=== PATIENT | male | born 1940 | race African-American/Black ===

== ENCOUNTER 2025-03-02 14:31 | Emergency (ER) | payer OTHER, SELFPAY ==
--- OUTSIDE RECORDS SUMMARY | 2025-03-01 08:15 | XMS_ITS | Encounter Summary ---
Author Organization [facility] Healthcare Address [address] [place] [address] Care Team Providers Care Limousine Rental Clerk Name Role Phone Robert Weeks DO Primary Care Provider Reason for Referral * Cardiology (Routine) - Closed Specialty Diagnoses / Procedures Referred By Contac t Referred To Contact Diagnoses Portopulmonary hypertension (HCC) Procedures Transthoracic Echo (TTE) With Bubble Study Kayleigh Vu MD [address] [address] Phone: tel: fax: [address] [phone] Referral ID Status Reason Start Date Expiration Date Visits Re quested Visits Authorized [id number] Closed 03/01/2025 05/30/2025 1 1 Reason for Visit * Cardiology (Routine) - Closed Specialty Diagnoses / Procedures Referred By Contac t Referred To Contact Diagnoses Portopulmonary hypertension (HCC) Procedures Transthoracic Echo (TTE) With Bubble Study Kayleigh Vu MD [address] [address] Phone: tel: fax: [address] [phone] Referral ID Status Reason Start Date Expiration Date Visits Re quested Visits Authorized [id number] Closed 03/01/2025 05/30/2025 1 1 Encounter Details Date Type Department Care Team (Latest Contact Info) Description 03/01/2025 8:15 AM CDT - 03/01/2025 11:59 PM CDT Hospital Encounter [facility] Cardiac Diagnostic Lab [address] [facility] [address] [place] [address] Portopulmonary hypertension (HCC) Discharge Disposition: Discharge to home or self care Social History Tobacco Use Types Packs/Day Years Used Date Smoking Tobacco: Former Cigarettes Smokeless Tobacco: Never Sex and Gender Information Value Date Recorded Sex Assigned at Not on file Legal Sex Male 11:25 AM CDT Gender Identity Not on file Sexual Orientation Not on file documented as of this encounter Medications at Time of Discharge acetaminophen (TYLENOL) 325 mg tablet Take 2 tablets (650 mg total) by mouth every 4 (four) hours as needed 08/24/2024 albuterol HFA (PROVENTIL HFA,VENTOLIN HFA,PROAIR HFA) 90 mcg/actuation inhaler Inhale 2 puffs every 4 (four) hours as needed 09/30/2024 atorvastatin (LIPITOR) 20 mg tablet Take 1 tablet (20 mg total) by mouth nightly Breztri Aerosphere 160-9-4.8 mcg/actuation inhaler INHALE 2 PUFFS INTO THE LUNGS TWICE DAILY 11/10/2024 Eliquis 5 mg tablet Take 1 tablet (5 mg total) by mouth 2 (two) times a day 09/07/2024 6 Farxiga 10 mg tablet Take 1 tablet (10 mg total) by mouth daily 02/01/2025 6 finasteride (PROSCAR) 5 mg tablet Take 1 tablet (5 mg total) by mouth daily metoprolol XL (TOPROL-XL) 25 mg extended release tablet Take 3 tablets (75 mg total) by mouth 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 09/07/2024 multivit-mineral s/folic acid (CENTRUM ADULT 50 PLUS ORAL) Take by mouth pantoprazole DR (PROTONIX) 40 mg EC tablet Take 1 tablet (40 mg total) by mouth daily sennosides 8.6 mg capsule Take 1 tablet by mouth daily 12/09/2024 documented as of this encounter Discharge Disposition Disposition Code Departure Means Destination Discharge to home or self care documented in this encounter Plan of Treatment Not on file documented as of this encounter Procedures Procedure Name Priority Date/Time Associated Diagnosis Comments TRANSTHORACIC ECHO (TTE) COMPLETE W DOPPLER/CF W CONTRAST W BUBBLE Routine 03/01/2025 9:49 AM CDT Portopulmonary hypertension (HCC) documented in this encounter Results * TRANSTHORACIC ECHO (TTE) COMPLETE W DOPPLER/CF W CONTRAST W BUBBLE (03/01/2025 9:49 AM CDT) Anatomical Region Laterality Modality Ultrasound 03/01/2025 8:45 AM CDT Narrative 03/01/2025 10:15 AM CDT [facility] Cardiac [place] [address] Transthoracic Echocardiographic Report Patient Name: ZEB ANTONY K : 1940 (84y 2m) Gender: M Study Date: 03/01/2025 08:45:58 AM Ht(Inch): 71 Wt(Lb): 195.99 BSA: 2.11 Resident Program Specialist: Tatyana Mcintyre RDCS Location: [facility] Order Provider: KAYLEIGH VU Heart Rate: 58 BMI: 27.33 BP: 152 / 66 Ref Provider: KAYLEIGH VU PROCEDURES: Echocardiographic Report: Transthoracic complete echo with strain imaging and contrast, 2D, spectral and tissue Doppler, color flow Doppler, M-mode. Contrast: Contrast Enhancement was Employed: Due to suboptimal image quality with inadequate visualization of at least 2 of 16 LV wall segments in any view after initial imaging. Perflutren contrast was administered using the volume necessary to obtain adequate images. 0.4 ml Optison Administered, (2.6 ml wasted). Technically difficult study due to: Poor acoustic windows. Limited visualization of some cardiac structures precludes the ability to obtain complete measurements - INDICATIONS: PortoPulmonary hypertension. CONCLUSIONS: 1. Concentric LV remodeling. Normal diastolic function. The ventricular septum is flattened or `D-shaped` in systole, consistent with right ventricular pressure overload. 2. Right ventricular dilatation. Normal right ventricular systolic function. The average right ventricular strain is abnormal. 3. Right atrial dilatation. 4. Agitated saline bubble study is negative for intracardiac shunt at rest and post-Valsalva. 5. There is no significant valvular heart disease. 6. Estimated pulmonary artery systolic pressure is consistent with mild-moderate pulmonary hypertension (~50 mmHg). PASP may be underestimated due to very faint TR jet. Mean PAP ~30 mmHg by PVAT. COMPARISONS: No previous study available for comparison. ATTESTATION: I have personally reviewed and interpreted this study without fellow or resident. - DISCLAIMER: The study images and the final report will be retained in the patient chart by the Echo Laboratory for the legally required time period. This chart constitutes the legal record of any testing performed. FINDINGS: Left Ventricle: Concentric LV remodeling. Normal diastolic function. Unable to assess global longitudinal strain due to image quality. The ventricular septum is flattened or `D-shaped` in systole, consistent with right ventricular pressure overload. Right Ventricle: Right ventricular dilatation. Normal right ventricular systolic function. Prominent moderator band - normal variant. The average right ventricular strain is abnormal. RV GLS -16.9%. Left Atrium: The left atrium is normal in size. Right Atrium: Right atrial dilatation. Atrial Septum: Agitated saline bubble study is negative for intracardiac shunt at rest and post-Valsalva. Mitral Valve: Mild calcification. No mitral regurgitation. No stenosis present. Aortic Valve: Trileaflet aortic valve. Mildly calcified aortic valve leaflets. No aortic regurgitation. No aortic valve stenosis. Tricuspid Valve: Normal tricuspid valve structure. Trace tricuspid regurgitation. No tricuspid valve stenosis. Pulmonic Valve: Normal pulmonic valve structure. No pulmonic regurgitation. No pulmonic valve stenosis present. Pericardium: Normal pericardium without pericardial effusion. Aorta: Normal aortic root size at sinuses of Valsalva. Normal aortic root size when indexed. IVC: The IVC was <2.1 cm and collapsibility >50%. (est. RA pressure 0-5 mmHg). The estimated RA pressure is 3 mmHg. PASP: The estimated pulmonary artery systolic pressure is 50.5 mmHg. Estimated pulmonary artery systolic pressure is consistent with mild-moderate pulmonary hypertension (~50 mmHg). PASP may be underestimated due to very faint TR jet. Mean PAP ~30 mmHg by PVAT. Rhythm: Normal Sinus rhythm was seen during the study. MEASUREMENTS: 2D/MM Value Range Doppler Value Range LVIDd 2D 4.18 cm [ 4.20 - 5.80 ] AV VTI 24.4 cm LVIDs 2D 2.13 cm [ 2.50 - 4.00 ] LVOT VTI 13.7 cm IVSd 2D 1.02 cm [ 0.60 - 1.00 ] LVOT/AV VTI 0.56 - Dimensionless index (DVI) LVPWd 2D 0.96 cm [ 0.60 - 1.00 ] MV E Peak Oscar 0.5 m/s [ 0.6 - 1.3 ] LV Thickness Ratio 1.1 MV A Peak Oscar 0.7 m/s [ 1.0 - 1.2 ] RWT 0.46 MV E/A 0.7 ratio [ 0.8 - 1.5 ] LA Length 4C 5.29 cm MV Decel Time 293.09 msec [ 104.00 - 258.00 ] RV Base Dimen 2D 5.0 cm [ 2.5 - 4.2 ] Med E` Oscar 5.7 cm/sec [ 8.0 - 25.0 ] RV Mid Dimen 2D 4.6 cm Lat E` Oscar 6.1 cm/sec [ 10.0 - 25.0 ] RV Length Dimen 2D 7.7 cm Average E/E` 8.47 TAPSE 2.52 cm [ 1.71 - 5.00 ] RV S` 19.03 cm/sec RA Volume 78.86 ml TR Peak Oscar 3.4 m/s [ 1.0 - 2.8 ] RA Volume Index 37.37 ml/m2 TR Peak PG 47.5 mmHg AoR Diam 2D 3.58 cm [ 3.10 - 3.70 ] RA Pressure 3 mmHg Ao Root Index 1.70 cm/m2 [ 1.00 - 2.00 ] RVSP 50.50 mmHg Electronically Signed By: Neva Ferris MD 03/01/2025 10:14:57 AM CDT Procedure Note De Neva Brunner MD - 03/01/2025 [facility] Cardiac [place] [address] Transthoracic Echocardiographic Report Patient Name: ZEB ANTONY K : 1940 (84y 2m) Gender: M Study Date: 03/01/2025 08:45:58 AM Ht(Inch): 71 Wt(Lb): 195.99 BSA: 2.11 Resident Program Specialist: Tatyana Mcintyre RDCS Location: [facility] Order Provider:KAYLEIGH VU Heart Rate: 58 BMI: 27.33 BP: 152 / 66 Ref Provider: KAYLEIGH VU PROCEDURES: Echocardiographic Report: Transthoracic complete echo with strain imagingand contrast, 2D, spectral and tissue Doppler, color flow Doppler, M-mode. Contrast: Contrast Enhancement was Employed: Due to suboptimal imagequality with inadequate visualization of at least 2 of 16 LV wall segments in any viewafter initial imaging. Perflutren contrast was administered using the volume necessaryto obtain adequate images. 0.4 ml Optison Administered, (2.6 ml wasted). Technically difficult study due to: Poor acoustic windows. Limitedvisualization of some cardiac structures precludes the ability to obtain complete measurements - INDICATIONS: PortoPulmonary hypertension. CONCLUSIONS: 1. Concentric LV remodeling. Normal diastolic function. The ventricularseptum is flattened or `D-shaped` in systole, consistent with right ventricularpressure overload. 2. Right ventricular dilatation. Normal right ventricular systolicfunction. The average right ventricular strain is abnormal. 3. Right atrial dilatation. 4. Agitated saline bubble study is negative for intracardiac shunt at restand post-Valsalva. 5. There is no significant valvular heart disease. 6. Estimated pulmonary artery systolic pressure is consistent withmild-moderate pulmonary hypertension (~50 mmHg). PASP may be underestimated due to veryfaint TR jet. Mean PAP ~30 mmHg by PVAT. COMPARISONS: No previous study available for comparison. ATTESTATION: I have personally reviewed and interpreted this study without fellow orresident. - DISCLAIMER: The study images and the final report will be retained in the patientchart by the Echo Laboratory for the legally required time period. This chart constitutesthe legal record of any testing performed. FINDINGS: Left Ventricle: Concentric LV remodeling. Normal diastolic function.Unable to assess global longitudinal strain due to image quality. The ventricular septum isflattened or `D-shaped` in systole, consistent with right ventricular pressureoverload. Right Ventricle: Right ventricular dilatation. Normal right ventricularsystolic function. Prominent moderator band - normal variant. The average rightventricular strain is abnormal. RV GLS -16.9%. Left Atrium: The left atrium is normal in size. Right Atrium: Right atrial dilatation. Atrial Septum: Agitated saline bubble study is negative for intracardiacshunt at rest and post-Valsalva. Mitral Valve: Mild calcification. No mitral regurgitation. No stenosispresent. Aortic Valve: Trileaflet aortic valve. Mildly calcified aortic valveleaflets. No aortic regurgitation. No aortic valve stenosis. Tricuspid Valve: Normal tricuspid valve structure. Trace tricuspidregurgitation. No tricuspid valve stenosis. Pulmonic Valve: Normal pulmonic valve structure. No pulmonicregurgitation. No pulmonic valve stenosis present. Pericardium: Normal pericardium without pericardial effusion. Aorta: Normal aortic root size at sinuses of Valsalva. Normal aortic rootsize when indexed. IVC: The IVC was <2.1 cm and collapsibility >50%. (est. RA pressure 0-5mmHg). The estimated RA pressure is 3 mmHg. PASP: The estimated pulmonary artery systolic pressure is 50.5 mmHg.Estimated pulmonary artery systolic pressure is consistent with mild-moderate pulmonaryhypertension (~50 mmHg). PASP may be underestimated due to very faint TR jet. Mean PAP ~30mmHg by PVAT. Rhythm: Normal Sinus rhythm was seen during the study. MEASUREMENTS: 2D/MM Value Range DopplerValue Range LVIDd 2D 4.18 cm [ 4.20 - 5.80 ] AV VTI24.4 cm LVIDs 2D 2.13 cm [ 2.50 - 4.00 ] LVOT VTI13.7 cm IVSd 2D 1.02 cm [ 0.60 - 1.00 ] LVOT/AV VTI0.56 - Dimensionless index (DVI) LVPWd 2D 0.96 cm [ 0.60 - 1.00 ] MV E Peak Vel0.5 m/s [ 0.6 - 1.3 ] LV Thickness Ratio 1.1 MV A Peak Vel0.7 m/s [ 1.0 - 1.2 ] RWT 0.46 MV E/A0.7 ratio [ 0.8 - 1.5 ] LA Length 4C 5.29 cm MV Decel Poyz604.09 msec [ 104.00 - 258.00 ] RV Base Dimen 2D 5.0 cm [ 2.5 - 4.2 ] Med E` Vel5.7 cm/sec [ 8.0 - 25.0 ] RV Mid Dimen 2D 4.6 cm Lat E` Vel6.1 cm/sec [ 10.0 - 25.0 ] RV Length Dimen 2D 7.7 cm Average E/E`8.47 TAPSE 2.52 cm [ 1.71 - 5.00 ] RV S`19.03 cm/sec RA Volume 78.86 ml TR Peak Vel3.4 m/s [ 1.0 - 2.8 ] RA Volume Index 37.37 ml/m2 TR Peak PG47.5 mmHg AoR Diam 2D 3.58 cm [ 3.10 - 3.70 ] RA Pressure 3mmHg Ao Root Index 1.70 cm/m2 [ 1.00 - 2.00 ] RVSP50.50 mmHg Electronically Signed By: Neva Ferris MD 03/01/2025 10:14:57 AM CDT us Kayleigh Vu MD CV ECHO PROCEDURES Final Result documented in this encounter Visit Diagnoses Diagnosis Portopulmonary hypertension (HCC) Portal hypertension documented in this encounter Administered Medications Inactive Administered Medications - up to 3 most recent administrations Medication Order MAR Action Action Date Dose Rate Site perflutren protein-a (OPTISON) 3 mL in sodium chloride 0.9% 8 mL syringe 1-8 mL, intravenous, Once in imaging, contrast, Starting on Fri03/01/25 at 0839, For 1 dose, Intra-Procedure (CV) Contrast Given 03/01/2025 9:39 AM CDT 1 mL documented in this encounter Orders Medications Ordered That Ra ht Not Have Been Administered Count Last Ordered Date First Ordered Date perflutren protein-a (OPTISO N) 3 mL in sodium chloride 0.9% 8 mL syringe 1 03/01/2025 documented in this encounter Care Teams Limousine Rental Clerk Relationship Specialty Start Date End Date Robert Weeks DO [address] [facility] [address] [place] [id number] PCP - General Internal Medicine 12/07/24 documented as of this encounter
--- OUTSIDE RECORDS SUMMARY | 2025-03-01 09:30 | XMS_ITS | Encounter Summary ---
Author Organization [facility] Address [address] [place] [address] Phone Care Team Providers Care Sports Physical Therapist Name Role Phone Robert Weeks DO Primary Care Provider Reason for Referral * Procedure (Routine) - Closed Specialty Diagnoses / Procedures Referred By Hilda t Referred To Contact Diagnoses Portopulmonary hypertension (HCC) Procedures Pulmonary Function Test -[facility] Adult PFT Lab- CAM-8D; Oxygen Assessment Titration, Lung Volumes, Spirometry, Spirometry with Bronchodilator, DLCO, ABG with Co-oximetry; Spirometry; Room Air; Plethysmography w/airway resistance, nitrogen washout Brad Restrepo MD [address] [place] [address] Phone: tel: fax: Referral ID Status Reason Start Date Expiration Date Visits Re quested Visits Authorized [id number] Closed 01/06/2025 02/05/2026 1 1 Reason for Visit * Procedure (Routine) - Closed Specialty Diagnoses / Procedures Referred By Contac t Referred To Contact Diagnoses Portopulmonary hypertension (HCC) Procedures Pulmonary Function Test -[facility] Adult PFT Lab- CAM-8D; Oxygen Assessment Titration, Lung Volumes, Spirometry, Spirometry with Bronchodilator, DLCO, ABG with Co-oximetry; Spirometry; Room Air; Plethysmography w/airway resistance, nitrogen washout Brad Restrepo MD [address] [place] [address] Phone: tel: fax: Referral ID Status Reason Start Date Expiration Date Visits Re quested Visits Authorized [id number] Closed 01/06/2025 02/05/2026 1 1 Encounter Details Date Type Department Care Team (Latest Contact Info) Description 03/01/2025 9:30 AM CDT - 03/01/2025 11:59 PM CDT Hospital Encounter 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 09/07/2024 multivit-mineral s/folic acid (CENTRUM [...] Procedure Name Priority Date/Time Associated Diagnosis Comments PULMONARY FUNCTION TEST (PFT) Routine 03/01/2025 11:08 AM CDT Portopulmonary hypertension (HCC) documented in this encounter Results * Pulmonary Function Test - (03/01/2025 11:08 AM CDT) FVC PRE 2.30 L [facility] FVC %PRE PRED 61 % [facility] FVC POST 2.90 L [facility] FVC %POST PRED 77 % [facility] FEV1 PRE 0.76 L [facility] FEV1 %PRE PRED 27 % [facility] FEV1 POST 0.97 L [facility] FEV1 %POST PRED 35 % [facility] FEV1/FVC PRE 33.0 % [facility] FEV1/FVC POST 33.5 % [facility] FRC PL PRE 5.12 L [facility] FRC PL %PRE PRED 130 % [facility] RV PRE 4.07 L [facility] RV %PRE PRED 145 % [facility] TLC PRE 6.47 L [facility] TLC %PRE PRED 90 % [facility] DLCO PRE 9.2 ml/min/mmH g [facility] DLCO %PRE PRED 38 % [facility] FIO2 % 21.00 % [facility] PaO2 58.0 mmHg [facility] PaCO2 43.0 mmHg [facility] pH 7.43 [facility] A-aDO2 POC 38.0 mmHg [facility] METHGB % 0.4 % [facility] COHb POC 1.2 % [facility] HCO3 28.5 mEq/L [facility] Anatomical Region Laterality Modality PFT 03/01/2025 9:45 AM CDT Narrative 03/01/2025 4:01 PM CDT Table formatting from the original result was not included. [facility] Division of Pulmonary & Critical Care Medicine [address] [place] [address]; [place] [address]; [place] [id number]; [phone] Pulmonary Function Laboratory Pulmonary Stress Test Simple/Oxygen Assessment Patient: Zeb Julian Date: 03/01/2025 : 1940 Ht: 70.5 IN Wt: 176 LBS Time (min) Distance (ft)/ Mcdonough O2 L/M SpO2 HR Farzad* BP FEV1 % Pred Rest: RA 94 73 1 130/84 0.76 27 % Walk/Bike: 1 RA 92 85 2 2 RA/2 88/93 98/83 2 3 2 93 103 3 4 2 92 105 3 5 2 93 106 3 6 min 0 sec 2 93 106 3 Recovery: 1 2 97 84 1 161/96 0.86 31% 3 2 99 71 0 *Farzad rate of perceived exertion (1-10 dyspnea scale) Eric, CHEST 2003; [id number] Walk Test Summary: Six Minute Walk Distance: 525 ft Six-minute Walk Work [distance (m) x body wt (kg)]: 93932 kg.m (normal >60,000kg.m) Oxygen required to maintain SpO2 greater than 90% during six minutes of walkin L/M Comments: O2A- ROLLATOR USED. Interpretation: Breathing room air, SpO2 is adequate at rest and during exercise sufficient to increase pulse, SpO2 falls to hypoxemic levels. On this basis, SpO2 is adequate at rest breathing room air and while walking breathing supplemental O2 at 2 L/min. This level of exercise is associated with no significant change of FEV1. By signing this report, the attending pulmonary physician certifies that he/she has personally reviewed and interpreted the graphic and numerical data associated with this pulmonary function study and has reviewed and /or edited a preliminary draft report and agrees with the written final report. PFT performed at:->[facility] Adult PFT Lab- CAM-8D Procedure:->Oxygen Assessment Titration Procedure:->Lung Volumes Procedure:->Spirometry Procedure:->Spirometry with Bronchodilator Procedure:->DLCO Procedure:->ABG with Co-oximetry DLCO:->Spirometry Air Type:->Room Air Standard:->Plethysmography w/airway resistance, nitrogen washout Pulmonary Function Test Interpretation SPIROMETRY: There is a decrease in expiratory airflow at all lung volumes. The FEV1 to FVC ratio is reduced. There is no significant improvement after inhaling a single dose of albuterol. The lack of response to a single inhaled beta-agonist treatment does not necessarily indicate irreversible airway obstruction. The inspiratory loop is appropriate for the expiratory flow abnormality. LUNG VOLUMES: TLC measured by plethysmography is normal. The increased RV suggests air trapping. DLCO: DLCO testing did not meet standards of accuracy and reproducibility. The diffusing capacity corrected for hemoglobin level (DLCO ADJ) is decreased. ARTERIAL BLOOD GAS: The pH and pCO2 are normal. The arterial pO2 is below the lower limit of normal for the patient's age at rest. O2 saturation measured by oximetry is adequate at rest. 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 There is air trapping. There is a moderate impairment of alveolar gas exchange by DLCO. There is a moderate impairment of gas exchange at rest by ABG. The attending pulmonary physician certifies a physician presence in the [facility] during the administration of aerosolized bronchodilator. The attending pulmonary physician certifies that he/she has reviewed and interpreted the graphic and numerical data of this pulmonary function study and agrees with the written final report. The lower limit of normal for PaO2 and %HbO2 is age dependent. However, the [facility] Pulmonary Function Laboratory defines hypoxemia as a PaO2 <56 mm Hg or a %HbO2 <89%. Starting on June of 2024 the [facility] Pulmonary Function Laboratory utilizes race neutral GLI Global normative equations. us Brad Restrepo MD PFT ORDERABLES Final Res ult documented in this encounter Visit Diagnoses Diagnosis Portopulmonary hypertension (HCC) Portal hypertension documented in this encounter Care Teams Sports Physical Therapist Relationship Specialty Start Date End Date Robert Weeks DO [facility] [address] [place] [id number] PCP - General Internal Medicine 12/07/24 documented as of this encounter
--- OUTSIDE RECORDS SUMMARY | 2025-03-01 11:19 | XMS_ITS | Encounter Summary ---
Author Organization [facility] Healthcare Address [address] [place] [address] Care Team Providers Care Data Center Architect Name Role Phone Robert Weeks DO Primary Care Provider Reason for Referral * MRI/CAT/PET Scan (Routine) - Closed Specialty Diagnoses / Procedures Referred By Contac t Referred To Contact Radiology Diagnoses Portopulmonary hypertension (HCC) Procedures CT Chest PE (CTA) and Chest High Resolution W Contrast Brad Restrepo MD [address] [place] [address] Phone: tel: fax: [address] [phone] Referral ID Status Reason Start Date Expiration Date Visits Re quested Visits Authorized [id number] Closed 02/15/2025 08/14/2025 1 1 Reason for Visit * MRI/CAT/PET Scan (Routine) - Closed Specialty Diagnoses / Procedures Referred By Contac t Referred To Contact Radiology Diagnoses Portopulmonary hypertension (HCC) Procedures CT Chest PE (CTA) and Chest High Resolution W Contrast Brad Restrepo MD [address] [place] [address] Phone: tel: fax: [address] [phone] Referral ID Status Reason Start Date Expiration Date Visits Re quested Visits Authorized [id number] Closed 02/15/2025 08/14/2025 1 1 Encounter Details Date Type Department Care Team (Latest Contact Info) Description 03/01/2025 11:19 AM CDT - 03/01/2025 11:59 PM CDT Hospital Encounter [facility]) [address] [place] [address] Portopulmonary hypertension (HCC) Discharge Disposition: Discharge to [...] tablet (20 mg total) by mouth nightly Lennieztri Aerosphere 160-9-4.8 mcg/actuation inhaler INHALE 2 PUFFS [...] 3 tablets (75 mg total) by mouth customer support professional before breakfast 09/07/2024 multivit-mineral s/folic acid (CENTRUM [...] Procedure Name Priority Date/Time Associated Diagnosis Comments CT CHEST PE AND CHEST HIGH RESOLUTION W CONTRAST Schedule Routine, Read Routine (OP Routine) 03/01/2025 12:22 PM CDT Portopulmonary hypertension (HCC) POCT CREATININE - DEVICE Routine 03/01/2025 11:57 AM CDT documented in this encounter Results * CT Chest PE (CTA) and Chest High Resolution W Contrast (03/01/2025 12:22 PM CDT) Anatomical Region Laterality Modality Body N/A Computed Tomogra phy 03/01/2025 1:59 PM CDT Impressions 03/01/2025 2:48 PM CDT 1. No pulmonary embolism. 2. Right ventricular enlargement septal flattening with slow transit contrast can be seen in the setting of pulmonary hypertension. 3. Patent foramen ovale secondary to pulmonary hypertension. 4. 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 5. 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 6. Bronchiectasis at the lower lobes with fibrosis and volume loss in keeping with chronic aspiration. Dictated by: Philippe Gee MD The radiology attending physician has personally reviewed this study, and had reviewed and/or edited this written report and agrees with it. Electronically signed by: Walter Alarcon M.D. Narrative 03/01/2025 2:48 PM CDT EXAMINATION: CT CHEST PE (CTA) AND CHEST HIGH RESOLUTION W CONTRAST HISTORY: Pulmonary hypertension TECHNIQUE: Computed tomographic images were acquired using a chest angiographic protocol optimized for pulmonary embolism. Contrast enhanced transaxial images were obtained following the intravenous administration of 100 ml of nonionic contrast. Multiplanar reformatted images and three-dimensional images were obtained on the 3-D workstation and sent to the PACS archival system. COMPARISON: None FINDINGS: Imaged portion of the thyroid is within normal limits. Esophagus is patulous. No supraclavicular, axillary, or mediastinal lymphadenopathy. There is right ventricular enlargement and septal flattening with relatively slow transit contrast which can be seen in the setting of pulmonary hypertension. There is a patent foraminal ovale which is likely secondary to pulmonary hypertension. Trace pericardial fluid present. There is no pulmonary embolism. There is bronchiectasis at the lower lobes posteriorly with fibrosis and volume loss in keeping with chronic aspiration. There is air trapping without fibrosis in the right middle lobe and left upper lobe. This may be the sequela of small airways disease. An expiratory images there is bronchomalacia at the right upper lobe bronchus. Imaged portion of the abdomen shows atherosclerotic disease of the abdominal aorta and superior mesenteric artery. Procedure Note Walter Alarcon MD - 03/01/2025 EXAMINATION: CT CHEST PE (CTA) AND CHEST HIGH RESOLUTION W CONTRAST HISTORY: Pulmonary hypertension TECHNIQUE: Computed tomographic images were acquired using a chest angiographic protocol optimized for pulmonary embolism. Contrast enhanced transaxial images were obtained following the intravenous administration of 100 ml of nonionic contrast. Multiplanar reformatted images and three-dimensional images were obtained on the 3-D workstation and sent to the PACS archival system. COMPARISON: None FINDINGS: Imaged portion of the thyroid is within normal limits. Esophagus is patulous. No supraclavicular, axillary, or mediastinal lymphadenopathy. There is right ventricular enlargement and septal flattening with relatively slow transit contrast which can be seen in the setting of pulmonary hypertension. There is a patent foraminal ovale which is likely secondary to pulmonary hypertension. Trace pericardial fluid present. There is no pulmonary embolism. There is bronchiectasis at the lower lobes posteriorly with fibrosis and volume loss in keeping with chronic aspiration. There is air trapping without fibrosis in the right middle lobe and left upper lobe. This may be the sequela of small airways disease. An expiratory images there is bronchomalacia at the right upper lobe bronchus. Imaged portion of the abdomen shows atherosclerotic disease of the abdominal aorta and superior mesenteric artery. IMPRESSION: 1. No pulmonary embolism. 2. Right ventricular enlargement septal flattening with slow transit contrast can be seen in the setting of pulmonary hypertension. 3. Patent foramen ovale secondary to pulmonary hypertension. 4. 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 5. 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 6. Bronchiectasis at the lower lobes with fibrosis and volume loss in keeping with chronic aspiration. Dictated by: Philippe Gee MD The radiology attending physician has personally reviewed this study, and had reviewed and/or edited this written report and agrees with it. Electronically signed by: Walter Alarcon M.D. Brad Restrepo MD IMG CT PROCEDURES Final R esult * (ABNORMAL) POCT creatinine (03/01/2025 11:57 AM CDT) Creatinine POC 1.8(H) 0.8 - 1.3 mg/dL Blood 03/01/2025 11:5 7 AM CDT 03/01/2025 11:57 AM CDT Brad Restrepo MD LAB POCT ORDERABLES - DEV ICE Final Result [facility] Department [place] [address] documented in this encounter Visit Diagnoses Diagnosis Portopulmonary hypertension (HCC) Portal hypertension documented in this encounter Administered Medications Inactive Administered Medications - up to 3 most recent administrations Medication Order MAR Action Action Date Dose Rate Site ioversoL (OPTIRAY 350) syringe 100 mL 100 mL, intravenous, Once in imaging, contrast, Starting on Fri03/01/25 at 1210, For 1 dose Contrast Given 03/01/2025 12:23 PM CDT 100 mL documented in this encounter Orders Medications Ordered That Ra ht Not Have Been Administered Count Last Ordered Date First Ordered Date ioversoL (OPTIRAY 350) syringe 100 mL 1 07/2024 documented in this encounter Care Teams Data Center Architect Relationship Specialty Start Date End Date Robert Weeks DO 3 [facility] [address] [place] [id number] PCP - General Internal Medicine 12/07/24 documented as of this encounter
--- OUTSIDE RECORDS SUMMARY | 2025-03-01 13:00 | XMS_ITS | Encounter Summary ---
Author Organization [facility] Address [address] [place] [address] Phone Care Team Providers Care Supervisor [employer] Name Role Phone Robert Weeks DO Primary Care Provider Reason for Referral * Procedure (Routine) - Authorized Specialty Diagnoses / Procedures Referred By Hilda amor Referred To Contact Diagnoses Venous thromboembolism (VTE) Pulmonary hypertension (HCC) Procedures Pulmonary Function Test -[facility] Adult PFT Lab- [facility]-8D; Walk for Distance, Spirometry Brad Restrepo MD [address] [place] [address] Phone: tel: fax: Referral ID Status Reason Start Date Expiration Date V isits Requested Visits Authorized [id number] Authorized 03/01/2025 03/31/2026 1 1 Reason for Visit * Consultation (Routine) - Authorized Specialty Diagnoses / Procedures Referred By Hilda amor Referred To Contact Pulmonary Disease / Pulmonology Diagnoses Portopulmonary hypertension (HCC) Abnormal CT lung screening Robert Weeks DO [address] [place] [address] Phone: tel: fax: Brad Restrepo MD [address] [facility] [address] [place] [address] Phone: tel: fax: Referral ID Status Reason Start Date Expiration Date Visits Requested Visits Authorized [id number] Authorized Specialty Services Required 03/01/2025 01/06/2026 99 99 Encounter Details Date Type Department Care Team (Latest Contact Info) Description 03/01/2025 1:00 PM CDT Office Visit [facility] Medicine Pulmonary [address] [facility] 8th [place] [address] [place] [id number] Brad Restrepo MD [address] [place] [address] Venous thromboembolism (VTE) (Primary Dx); Chronic obstructive pulmonary disease, unspecified COPD type (HCC); Chronic anticoagulation; Pulmonary hypertension (HCC) Social History Tobacco Use Types Packs/Day Years Used Date Smoking Tobacco: Former Cigarettes Smokeless Tobacco: Never Tobacco Cessation:Counseling Given: Not Answered Sex and Gender Information Value Date Recorded Sex Assigned at Not on file Legal Sex Male 11:25 AM CDT Gender Identity Not on file Sexual Orientation Not on file documented as of this encounter Last Filed Vital Signs Vital Sign Reading Time Taken Comments Blood Pressure 146/80 03/01/2025 1:23 PM CDT Pulse 60 03/01/2025 1:23 PM CDT Temperature 36.1 C (97 F) 03/01/2025 1:23 PM CDT Respiratory Rate 18 03/01/2025 1:23 PM CDT Oxygen Saturation 93% 03/01/2025 1:23 PM CDT Inhaled Oxygen Concentration - - Weight 79.8 kg (176 lb) 03/01/2025 1:23 PM CDT Height 179.1 cm (5' 10.5) 03/01/2025 1:23 PM CD T Body Mass Index 24.9 03/01/2025 1:23 PM CDT documented in this encounter Patient Instructions * Patient Instructions* Brad Restrepo MD - 03/01/2025 1:00 PM CDT Use 2 liters oxygen when active at home or outside. Continue current medications. Will review your scans with our Radiology. Ask your oxygen company and Dr. Weeks's office about a portable oxygen concentrator. Call our nurses' line if you have any questions, . documented in this encounter Plan of Treatment Scheduled Orders Name Type Priority Associated Diagnoses Orde r Schedule Pulmonary Function Test -[facility] Adult PFT Lab- [facility]-8D; Walk for Distance, Spirometry PFT Routine Venous thromboembolism (VTE) Pulmonary hypertension (HCC) Expected: 05/31/2025, Expires: 03/01/2026 documented as of this encounter Visit Diagnoses Diagnosis Venous thromboembolism (VTE)- Primary Chronic obstructive pulmonary disease, unspecified COPD type (HCC) Chronic anticoagulation Encounter for long-term (current) use of anticoagulants Pulmonary hypertension (HCC) Other chronic pulmonary heart diseases documented in this encounter Historical Medications * This list may reflect changes made after this encounter. multivit-mineral s/folic acid (CENTRUM ADULT 50 PLUS ORAL) Take by mouth albuterol HFA (PROVENTIL HFA,VENTOLIN HFA,PROAIR HFA) 90 mcg/actuation inhaler Inhale 2 puffs every 4 (four) hours as needed 09/30/2024 acetaminophen (TYLENOL) 325 mg tablet Take 2 tablets (650 mg total) by mouth every 4 (four) hours as needed 08/24/2024 Breztri Aerosphere 160-9-4.8 mcg/actuation inhaler INHALE 2 PUFFS INTO THE LUNGS TWICE DAILY 11/10/2024 atorvastatin (LIPITOR) 20 mg tablet Take 1 tablet (20 mg total) by mouth nightly metoprolol XL (TOPROL-XL) 25 mg extended release tablet Take 3 tablets (75 mg total) by mouth division service manager before breakfast 09/07/2024 sennosides 8.6 mg capsule Take 1 tablet by mouth daily 12/09/2024 finasteride (PROSCAR) 5 mg tablet Take 1 tablet (5 mg total) by mouth daily Eliquis 5 mg tablet Take 1 tablet (5 mg total) by mouth 2 (two) times a day 09/07/2024 6 Farxiga 10 mg tablet Take 1 tablet (10 mg total) by mouth daily 02/01/[address] (PROTONIX) 40 mg EC tablet Take 1 tablet (40 mg total) by mouth daily added in this encounter Orders Outpatient Referral Count Last Ordered Date st Ordered Date AMB REFERRAL TO PULMONOLOGY 1 03/01/2025 documented in this encounter Care Teams Supervisor [employer] Relationship Specialty Start Date End Date Robert Weeks DO 3 [facility] [address] [place] [address] PCP - General Internal Medicine 12/07/24 documented as of this encounter
--- OUTSIDE RECORDS SUMMARY | 2025-03-01 15:14 | XMS_ITS | Encounter Summary ---
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 There will be no report generated by a [facility] Radiologist. Narrative RAD_PACS_[facility] - 03/01/2025 3:14 PM CDT EXAMINATION: Images For Reference Purposes Only us Brad Restrepo MD IMG XR PROCEDURES Final R esult [facility] documented in this encounter Visit Diagnoses Not on filedocumented in this encounter Care Teams Clinical Trial Specialist Relationship Specialty Start Date End Date Robert Weeks DO [address] [place] [address] [place] [address] PCP - General Internal Medicine 12/07/24 documented as of this encounter
--- OUTSIDE RECORDS SUMMARY | 2025-03-01 15:14 | XMS_ITS | Encounter Summary ---
Author Organization [facility] Healthcare Address [address] [place] [address] Care Team Providers Care Blood Bank Supervisor Name Role Phone Robert Weeks DO Primary Care Provider Encounter Details Date Type Department Care Team (Latest Contact Info) Description 03/01/2025 3:14 PM CDT - 03/01/2025 11:59 PM CDT Hospital Encounter [facility]iology [facility]) [address] [place] [address] Arrived Discharge Disposition: Discharge to home or [...] 3 tablets (75 mg total) by mouth nurse case manager before breakfast 09/07/2024 multivit-mineral s/folic acid (CENTRUM [...] Procedure Name Priority Date/Time Associated Diagnosis Comments NM OUTSIDE REFERENCE Routine 03/01/2025 3:14 PM CDT documented in this encounter Results * NM Outside Reference (03/01/2025 3:14 PM CDT) Anatomical Region Laterality Modality N/A Nuclear Medicine 03/02/2025 2:49 PM CDT Addenda Addendum by Riley Kelly MD on 03/02/2025 2:49 PM CDT A consult was requested on 03/02/2025 date. Please see new accession #[id number] for the consult interpretation. Edited by: Humberto Admin/Mobile Sales Consultant Umair Electronically signed by: Riley Kelly M.D. Impressions 03/01/2025 3:14 PM CDT These images are for Reference purposes only and have not been reviewed by [facility] Radiology. There will be no report generated by a [facility] Radiologist. Narrative 03/01/2025 3:14 PM CDT EXAMINATION: Images For Reference Purposes Only Procedure Note Riley Kelly MD - 03/01/2025 EXAMINATION: Images For Reference Purposes Only IMPRESSION:These images are for Reference purposes only and have not beenreviewed by [facility] Radiology. There will be no reportgenerated by a [facility] Radiologist. us Brad Restrepo MD IMG NM PROCEDURES Edited Result - Final documented in this encounter Visit Diagnoses Not on filedocumented in this encounter Care Teams Blood Bank Supervisor Relationship Specialty Start Date End Date Robert Weeks DO 3 [facility] [address] [place] [id number] PCP - General Internal Medicine 12/07/24 documented as of this encounter
--- NOTE | ~2025-03-02 | XR_ITS ---
XR shoulder RT min 2V 03/02/2025 15:27 Indication: Right shoulder pain Procedure: 4 views right shoulder Comparison: No prior studies for comparison. 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 There is calcific tendinopathy. No acute fracture or traumatic malalignment. 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 Reviewed, dictated and finalized at location O. 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
--- OUTSIDE RECORDS SUMMARY | 2025-03-02 | XMS_ITS | Encounter Summary ---
Author Organization [facility] Healthcare Address [address] [place] [address] Care Team Providers Care Sociology Research Assistant Name Role Phone Robert Weeks DO Primary Care Provider Encounter Details Date Type Department Care Team (Late st Contact Info) Description 03/02/2025 Hospital Encounter [facility]) [address] [place] [address] Diagnosis unknown Social History Tobacco Use Types Packs/Day Years Used Date Smoking Tobacco: Former Cigarettes Smokeless Tobacco: Never Sex and Gender Information Value Date Recorded Sex Assigned at Not on file Legal Sex Male 11:25 AM CDT Gender Identity Not on file Sexual Orientation Not on file documented as of this encounter Plan of Treatment Not on file documented as of this encounter Procedures Procedure Name Priority Date/Time Associated Diagnosis Comments NM OUTSIDE CONSULT Routine 03/01/2025 11 :33 PM CDT Diagnosis unknown documented in this encounter Results * NM Outside Consult (03/01/2025 11:33 PM CDT) Anatomical Region Laterality Modality N/A Nuclear Medicine 03/02/2025 2:48 PM CDT Impressions 03/02/2025 2:57 PM CDT 1. Intermediate likelihood for pulmonary embolism. There are regions of decreased perfusion along with diffusely abnormal ventilation, as described above. COPD. The findings, conclusions and recommendations within this report do not replace the initial findings, conclusions and recommendations made at the facility where the study was performed based upon the imaging and clinical condition at that time. Comparison with the prior report and clinical history is necessary. The provided images may or may not represent the [place] source data set and thus may contain changes that may lower the accuracy of this second-opinion interpretation. Dictated by: Clarke Wiseman MD, PHD The radiology attending physician has personally reviewed this study, and had reviewed and/or edited this written report and agrees with it. Electronically signed by: Norma Riley M.D. Narrative 03/02/2025 2:57 PM CDT EXAMINATION: RADIOLOGY CONSULTATION ON OUTSIDE IMAGING STUDY STUDY INITIALLY PERFORMED: 12/03/2024, images acquired at [facility]. TYPE OF STUDY: Ventilation/perfusion scintigraphy. The images available for review consisted of xenon. The protocol was adequate to address the clinical question. The outside final report with available at the time of this second opinion interpretation. DATE OF CONSULTATION: 03/02/2025 HISTORY: Patient reportedly diagnosed with right lower lobe pulmonary embolism at outside hospital at the beginning of 2024. Outside CTA of the chest from 08/19/2024 was then reportedly negative for PE at that time. 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 COMPARISON: Outside prior chest radiograph dated 12/03/2024 CT dated 03/01/2025 FINDINGS: The comparison chest radiograph performed on 12/03/2024 demonstrates no pulmonary infiltrates or pleural fluid. There is mild pleural parenchymal scarring at the right lung base. The Xe-133 ventilation images show a hypoventilation of the left lung particularly in the lung base and left midlung on single-breath with progressive accumulation of activity in the left lung on washin images. There is diffuse Xe-133 retention in both lungs during the washout phase, suggestive of cOPD. The perfusion images show a large defect in the apical segment of the right upper lobe, decreased perfusion in the lingula and middle lobe. Otherwise, there is patchy perfusion throughout both lungs. Procedure Note Norma Riley MD - 03/02/2025 EXAMINATION: RADIOLOGY CONSULTATION ON OUTSIDE IMAGING STUDY STUDY INITIALLY PERFORMED: 12/03/2024, images acquired at [facility]. TYPE OF STUDY: Ventilation/perfusion scintigraphy. The images available for review consisted of xenon. The protocol was adequate to address the clinical question. The outside final report with available at the time of this second opinion interpretation. DATE OF CONSULTATION: 03/02/2025 HISTORY: Patient reportedly diagnosed with right lower lobe pulmonary embolism at outside hospital at the beginning of 2024. Outside CTA of the chest from 08/19/2024 was then reportedly negative for PE at that time. 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 COMPARISON: Outside prior chest radiograph dated 12/03/2024 CT dated 03/01/2025 FINDINGS: The comparison chest radiograph performed on 12/03/2024 demonstrates no pulmonary infiltrates or pleural fluid. There is mild pleural parenchymal scarring at the right lung base. The Xe-133 ventilation images show a hypoventilation of the left lung particularly in the lung base and left midlung on single-breath with progressive accumulation of activity in the left lung on washin images. There is diffuse Xe-133 retention in both lungs during the washout phase, suggestive of cOPD. The perfusion images show a large defect in the apical segment of the right upper lobe, decreased perfusion in the lingula and middle lobe. Otherwise, there is patchy perfusion throughout both lungs. IMPRESSION: 1. Intermediate likelihood for pulmonary embolism. There are regions of decreased perfusion along with diffusely abnormal ventilation, as described above. COPD. The findings, conclusions and recommendations within this report do not replace the initial findings, conclusions and recommendations made at the facility where the study was performed based upon the imaging and clinical condition at that time. Comparison with the prior report and clinical history is necessary. The provided images may or may not represent the [place] source data set and thus may contain changes that may lower the accuracy of this second-opinion interpretation. Dictated by: Clarke Wiseman MD, PHD The radiology attending physician has personally reviewed this study, and had reviewed and/or edited this written report and agrees with it. Electronically signed by: Norma Riley M.D. Brad Restrepo MD IMG NM PROCEDURES Final R esult documented in this encounter Visit Diagnoses Diagnosis Diagnosis unknown documented in this encounter Care Teams Sociology Research Assistant Relationship Specialty Start Date End Date Robert Weeks DO 3 [facility] [address] [place] [address] PCP - General Internal Medicine 12/07/24 documented as of this encounter
[2025-03-02 14:45] VITALS: BP 139/73; PULSE 68; RESP 18; TEMP 36.4; O2SAT 95
--- NOTE | 2025-03-02 15:39 | ED.GENADULT ---
HPI - General Adult General Chief complaint: Extremity Problem,Nontraumatic Stated complaint: R shoulder pain Time Seen by Provider: 03/02/25 14:47 History of Present Illness HPI narrative: Patient 84-year-old gentleman who presents emergency department chief complaint of right shoulder pain. Patient reports the pain started on Friday after he got up out of bed. The patient states it hurts whenever he tries to lift his shoulder up reports no specific trauma but does report that there is some bruising to the anterior shoulder patient denies numbness or tingling Related Data Allergies Allergy/AdvReac Type Severity Reaction Status Date / Time No Known Allergies Allergy Verified 03/02/25 14:53 Review of Systems Review of Systems: A 10 system review of systems was completed on the patient and is negative except for what is stated in the HPI. Nursing and ancillary documentation was reviewed. Exam Narrative: GENERAL: Well-appearing, well-nourished, and in no acute distress. HEAD: Normocephalic, atraumatic. EYES: PERRLA and EOMI. ENT: Nares clear, no rhinorrhea or epistaxis. Mucous membranes moist. NECK: Supple. CHEST: Clear to auscultation. No respiratory distress. HEART: Regular rate and rhythm. No murmur heard. Normal peripheral pulses. ABDOMEN: Soft, nontender, nondistended, normal active bowel sounds. EXTREMITIES: Normal range of motion except for right shoulder which is limited secondary to pain patient has difficulty lifting the shoulder above his chest. No edema. SKIN: Warm, dry, no rash. NEURO: No focal deficits. Alert and oriented x3. PSYCH: Normal mood and affect. Course Vital Signs Vital signs: Vital Signs Temperature 36.4 C 03/02/25 14:45 Pulse Rate 03/02/25 14:45 Respiratory Rate 03/02/25 14:45 Blood Pressure 139/73 03/02/25 14:45 Pulse Oximetry 95 03/02/25 14:45 Oxygen Delivery Room Air 03/02/25 14:45 Temperature 36.4 C 03/02/25 14:45 Pulse Rate 03/02/25 14:45 Respiratory Rate 18 03/02/25 14:45 Blood Pressure 139/73 03/02/25 14:45 Pulse Oximetry 95 03/02/25 14:45 Oxygen Delivery Room Air 03/02/25 14:45 Medical Decision Making MDM Narrative Medical decision making narrative: Differential diagnosis includes fracture, arthritis, strain Shoulder x-ray showed significant arthritis Patient will be placed on a steroid and anti-inflammatory patient will be referred to Orthopedics Vital Signs Vital Signs: Vital Signs Temperature 36.4 C 03/02/25 14:45 Pulse Rate 68 03/02/25 14:45 Respiratory Rate 18 03/02/25 14:45 Blood Pressure 139/73 03/02/25 14:45 Pulse Oximetry 95 03/02/25 14:45 Oxygen Delivery Room Air 03/02/25 14:45 Temperature 36.4 C 03/02/25 14:45 Pulse Rate 68 03/02/25 14:45 Respiratory Rate 18 03/02/25 14:45 Blood Pressure 139/73 03/02/25 14:45 Pulse Oximetry 95 03/02/25 14:45 Oxygen Delivery Room Air 03/02/25 14:45 Discharge Plan Discharge Clinical Impression: Arthralgia of shoulder region, right, Right shoulder strain Patient Disposition: Home Condition: Stable Instructions: Antibiotic Form, How to Use a Sling (ED), Shoulder Sprain (ED), Shoulder Pain (ED) Patient Language: Hungarian Prescriptions: New prednisone 20 mg tablet 40 mg PO DAILY 5 Days Qty: 10 0RF tizanidine 4 mg capsule 4 mg PO TID PRN (Reason: muscle spasticity) Qty: 21 0RF Follow-up/Referrals: PHYSICIAN NOT ON STAFF,NONSTAFF [Primary Care Provider] Artis Chiang MD [Physician, Orthopedics] Time of Disposition: 15:51
--- OUTSIDE RECORDS SUMMARY | 2025-03-02 17:09 | XMS_ITS | Clinical Summary ---
Author Organization [facility] Address [address] [place] [address] Care Team Providers Care Dyehouse Worker Name Role Phone Taz Sorto MD Primary Care Provider [phone] Allergies No known active allergies Medications acetaminophen (TYLENOL) 325 MG tablet Take 2 tablets (650 mg total) by mouth every 4 (four) hours as needed for moderate pain. 5 Active apixaban (Eliquis) 5 MG tabletIndicatio ns:Pulmonary Embolism Take 1 tablet (5 mg total) by mouth in the morning and 1 tablet (5 mg total) before bedtime. Indications: Blockage of Blood Vessel to Lung by a Particle. 60 tablet 5 Active atorvastatin (LIPITOR) 20 MG tablet Take 1 tablet (20 mg total) by mouth in the morning. 30 tablet 5 Active albuterol (ACCUNEB) (2.5 MG/3ML) 0.083% nebulizer solution Inhale 3 mL (2.5 mg total) Every 6 hours as needed. for shortness of breath or wheezing. 10 mL 5 Active Diclofenac Sodium (VOLTAREN) 1 % gel Apply 4 g topically 4 (four) times a day as needed (Pain). 100 g 5 Active Fluticasone-Ume clidin-Vilant (TRELEGY ELLIPTA) 100-62.5-25 MCG/ACT aerosol powder DISKUS Inhale 1 puff in the morning. 1 each 5 Active lidocaine (LIDOCARE) 4 % patch patch Place 2 patches on the skin in the morning. 5 Active meclizine (ANTIVERT) 25 MG tablet Take 1 tablet (25 mg total) by mouth 3 (three) times a day as needed for dizziness. Active melatonin tablet Take 1 tablet (3 mg total) by mouth nightly as needed for sleep. Active metoprolol succinate XL (TOPROL-XL) 25 MG 24 hr tablet Take 3 tablets (75 mg total) by mouth in the morning. 30 tablet Active pantoprazole (PROTONIX) 40 MG EC/DR tablet Take 1 tablet (40 mg total) by mouth Daily at 6am. 30 tablet Active polyethylene glycol (MIRALAX) 17 g packet Take 17 g by mouth daily as needed (constipation) . Active senna (SENOKOT) 8.6 MG tablet Take 1 tablet (8.6 mg total) by mouth in the morning and 1 tablet (8.6 mg total) before bedtime. 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 Patient declined 08/25/2024 Social Connection and Isolation Panel [NHANES] A nswer Date Recorded In a typical week, how many times do you talk on the phone with family, friends, or neighbors? Patient declined 08/25/2024 How often do you get togethe r with friends or relatives? Patient declined 08/25/2024 How often do you attend samaritan or confucianist serv ices? Patient declined 08/25/2024 Do you belong to any clubs o r organizations such as samaritan groups, unions, fraternal or athletic groups, or school groups? Patient declined 08/25/2024 How often do you attend meet ings of the clubs or organizations you belong to? Patient declined 08/25/2024 Are you , , di vorced, , never , or living with a partner? 08/25/2024 AUDIT-C Answer Date Recorded Q1: How often do you have a drink containing alcohol? Never 08/25/2024 Q2: How many drinks containi ng alcohol do you have on a typical day when you are drinking? Patient does not drink Q3: How often do you have si x or more drinks on one occasion? Never 08/25/2024 Overall Financial Resource Strain (CARDIA) Answe r Date Recorded How hard is it for you to pa y for the very basics like food, housing, medical care, and heating? Patient declined 08/25/2024 [facility] - Occupational Stress Questionnaire Answer Date Recorded Do you feel stress - tense, restless, nervous, or anxious, or unable to sleep at night because your mind is troubled all the time - these days? Not at all 09/07/2024 Hunger Vital Sign Answer Date Recorded Within the past 12 months, y ou worried that your food would run out before you got the money to buy more. Patient declined Within the past 12 months, t he food you bought just didn't last and you didn't have money to get more. Patient declined Housing Stability Vital Sign Answer Alex e Recorded In the last 12 months, was t here a time when you were not able to pay the mortgage or rent on time? Patient declined 08/25/19 25 In the past 12 months, how m any times have you moved where you were living? 0 08/25/2024 At any time in the past 12 m [facility], were you homeless or living in a fci (including now)? Patient declined 08/25/2024 Domestic Abuse Assessment Answer Date R ecorded Do you feel safe in your relationships at home? Yes 08/24/2024 Physical Abuse Denies 08/24/2024 HRSN Domestic Abuse - Type of Abuse Not on file 08/24/2024 HRSN Domestic Abuse - Time Frame Not on file 08/24/2024 HRSN Domestic Abuse - Signs and Symptoms Not on file 08/24/2024 Verbal Abuse Denies 08/24/2024 Possible abuse reported to: Other (Comment) 08/01 [facility] Transportation Source Answer Da te Recorded Has lack of transportation k ept you from medical appointments or from getting medications? No 09/06/2024 Has lack of transportation k ept you from meetings, work, or from getting things needed for daily living? No 09/06/2024 HRSN Depression PHQ-2 Answer Date Recor ded Feeling down, depressed, or hopeless 0 09/07/2024 Little interest or pleasure in doing things 0 09/07/2024 Sex and Gender Information Value Date Recorded Sex Assigned at Not on file Legal Sex Male 1:06 PM EST Gender Identity Not on file Sexual Orientation Not on file Last Filed Vital Signs Vital Sign Reading Time Taken Comments Blood Pressure 128/78 09/07/2024 7:27 AM CDT Pulse 95 09/07/2024 7:27 AM CDT Temperature 36.6 C (97.9 F) 09/07/2024 7:27 AM CDT Respiratory Rate 18 09/07/2024 7:27 AM CDT Oxygen Saturation 92% 09/07/2024 7:27 AM CDT Inhaled Oxygen Concentration - - Weight 75.2 kg (165 lb 12.8 oz) 025 10:00 PM MACHINE TRACER Height 180.3 cm (5' 11) 08/24/2024 10: 00 PM MACHINE TRACER Body Mass Index 23.12 08/24/2024 10:00 PM MACHINE TRACER Plan of Treatment Health Maintenance Due Date Last Done Comments Annual Visit Topic 12/19/1940 DTaP/Tdap/Td Vaccines (1 - Tdap) 12/19/1958 Pneumococcal Vaccine: 65+ Ye ars (1 of 2 - PCV) 12/19/1989 HIB Vaccines Aged Out No longer eligi ble based on patient's age to complete this topic HPV Vaccines Aged Out No longer eligi ble based on patient's age to complete this topic Hepatitis A Vaccines Aged Out No long er eligible based on patient's age to complete this topic Hepatitis B Vaccines Aged Out No long er eligible based on patient's age to complete this topic IPV Vaccines Aged Out No longer eligi ble based on patient's age to complete this topic Meningococcal Vaccine Aged Out No estrella flores eligible based on patient's age to complete this topic Advance Directives * Full Resuscitation (Latest Code Status on File) Date Activated Date Inactivated Comments 08/24/2024 7:55 PM 09/07/2024 8:41 PM Question Answer Comments I have discussed this order with the patient or his/her surrogate and have received informed consent. Yes Care Teams Dyehouse Worker Relationship Specialty Start Date End Date Taz Sorto MD [address] [address] PCP - General Internal Medicine 08/25/24
--- OUTSIDE RECORDS SUMMARY | 2025-03-02 17:09 | XMS_ITS | Clinical Summary ---
Author Organization [facility] Address [address] [place] [address] Care Team Providers Care Lug Breaker And Wire Puller Name Role Phone Unavailable Primary Care Provider Unavailabl e Source Comments [facility],non-owned Affiliates and Associated Physician Practices is amultiple site organization consisting of ambulatory clinics and hospital sitesin [place], [place], [place] and [place]. This disclosure is being madepursuant to the Care Everywhere program and may not contain all information available regarding this patient. Last updated 18.[facility] Medications * Be aware that medications may not be up to date on this document. Always verify current medications with the patient. atorvastatin (Lipitor) 20 MG tablet Take 1 tablet (20 mg total) by mouth in the morning. 30 tablet 09/07/2024 3:06 PM CDT Active albuterol (Proventil;Vent nia) (2.5 MG/3ML) 0.083% nebulizer solution Nebulize the contents of one vial every 6 hours as needed for shortness of breath or wheezing 90 mL 09/07/2024 3:06 PM CDT Active apixaban (Eliquis) 5 MG tablet Take 1 tablet (5 mg total) by mouth in the morning and 1 tablet (5 mg total) before bedtime. Indications: Blockage of Blood Vessel to Lung by a Particle. 60 tablet 09/07/2024 3:06 PM CDT Active diclofenac sodium (Voltaren) 1 % gel Apply 4 grams topically 4 (four) times a day as needed for pain 100 g 09/07/2024 3:06 PM CDT Active Fluticasone-Ume clidin-Vilant (Trelegy Ellipta) 100-62.5-25 MCG/ACT Inhale 1 puff in the morning. 60 Each 09/07/2024 3:06 PM CDT Active metoprolol succinate XL 24hr (Toprol XL) 25 MG tablet Take 3 tablets (75 mg total) by mouth in the morning. 30 tablet 09/07/2024 3:06 PM CDT Active pantoprazole EC (Protonix) 40 MG tablet Take 1 tablet (40 mg total) by mouth Daily at 6am. 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 Gender Identity Not on file Sexual Orientation Not on file Plan of Treatment Upcoming Encounters Date Type Department Care Team (Latest Contact Info) Description 04/12/2025 7:25 AM CDT Hospital Encounter [facility] [phone] Leandro Morales MD [address] [place] [address] [place] [phone] Surgery General 04/12/2025 7:25 AM CDT - 04/12/2025 8:30 AM CDT Surgery [facility]AMB SURGERY [facility] [place] [phone] Leandro Morales MD [address] [facility] [place] [phone] EXTRACTION CATARACT WITH INSERTION INTRAOCULAR LENS, RIGHT EYE 04/13/2025 1:00 PM CDT Office Visit [facility] - Ophthalmology [address] [place] [phone] Leandro Morales MD [address] [place] [address] [place] [phone] 04/26/2025 7:25 AM CDT Hospital Encounter [facility] SURGERY [address] [place] [phone] Leandro Morales MD [address] [place] [address] [place] [phone] Surgery General 04/26/2025 7:25 AM CDT - 04/26/2025 8:23 AM CDT Surgery [facility] SURGERY [address] [place] [phone] Leandro Morales MD [address] [place] [address] [place] [phone] EXTRACTION CATARACT WITH INSERTION INTRAOCULAR LENS, LEFT EYE 04/27/2025 1:00 PM CDT Office Visit [facility] - Ophthalmology [address] [place] [phone] Leandro Morales MD [address] [place] [address] [place] [phone] Scheduled Procedures Name Priority Associated Diagnoses Date/Ti me EXTRACTION CATARACT WITH INSERTION LENS Combined forms of age-related cataract of both eyes 04/12/2025 7:25 AM CDT EXTRACTION CATARACT WITH INSERTION LENS Combined forms of age-related cataract of both eyes 04/26/2025 7:25 AM CDT Health Maintenance Due Date Last Done Comments DTAP/TDAP/TD VACCINES (1 - Tdap) 12/19/1958 PNEUMOCOCCAL VACCINE 50+ (1 of 1 - PCV) 12/19/1989 ZOSTER VACCINE (1 of 2) 12/19/1989 Respiratory Syncytial Virus (RSV) Vaccine Pt: or over 60 yrs (1 - 1-dose 75+ series) 12/19/2014 COVID-19 VACCINE (2023-2 5 season) 2024 09/07/2020, 08/10/2020 DEPRESSION SCREENING 06/30/2024 INFLUENZA VACCINE (#1) 2025 HEPATITIS B VACCINE Aged Out No longe r eligible based on patient's age to complete this topic HIB VACCINE Aged Out No longer eligi ble based on patient's age to complete this topic HPV VACCINE Aged Out No longer eligi ble based on patient's age to complete this topic MENINGOCOCCAL (Group B) VACCINE SHARED DECISION-MAKING Aged Out No longer eligible based on patient's age to complete this topic MENINGOCOCCAL GROUPS A/C/Y/W VACCINE Aged Out No longer eligible b ased on patient's age to complete this topic Procedures Procedure Name Priority Date/Time Associated Diagnosis Comments EYE EXAM 01/27/2025 from Last 3 Months Results * EYE EXAM (01/27/2025) Anatomical Region Laterality Modality Other Narrative 01/27/2025 Ordered by an unspecified provider. us Scanned Document SCANNING ONLY Final Result from Last 3 Months Insurance MEDICAID - [place] Advance Directives * Full Code (Latest Code Status on File) Date Activated Date Inactivated Comments 08/24/2024 7:00 PM 09/07/2024 6:34 PM
--- OUTSIDE RECORDS SUMMARY | 2025-03-02 17:09 | XMS_ITS | Clinical Summary ---
Author Organization [facility] Address [address] [place] [address] Phone Care Team Providers Care Technical Services Rep Name Role Phone Taz Sorto MD Primary Care Provider [phone] Allergies No known active allergies Medications atorvastatin (LIPITOR) 20 mg tablet Take 20 mg by mouth daily. Active acetaminophen (TYLENOL) 325 mg tablet Take 2 Tablets (650 mg) by mouth every 4 hours as needed for Pain. Active Additional Information Patient not taking.Reported on 09/21/2024 pantoprazole (PROTONIX) 40 mg Tablet, Delayed Release (E.C.) Take 40 mg by mouth. Active metoprolol succinate (TOPROL XL) 25 mg Extended Release 24 hour tablet take 3 tablets by mouth every morning. Active furosemide (LASIX) 20 mg tablet Take 1 Tablet (20 mg) by mouth daily. 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 Cor pulmonale (chronic) 08/19/2024 RVF (right ventricular failure) 08/19/2024 Dyspnea 08/19/2024 Pulmonary embolism 08/18/2024 TRUJILLO (dyspnea on exertion) 08/18/2024 Bilateral leg edema 08/18/2024 Elevated troponin 08/18/2024 Renal insufficiency 08/18/2024 Normocytic anemia 08/18/2024 Resolved Problems Problem Noted Date Diagnosed Date Resolved Date Hypervolemia 08/18/2024 08/18/2024 Encounters Date Type Department Care Team Description 02/02/2025 External Device Data [facility] ABSTRACTION Provider, Abstract 12/21/2024 External Device Data [facility] ABSTRACTION Provider, Abstract from Last 3 Months Family History Medical History Relation Name Comments No Known Problems Father Relation Name Status Comments Father Social History Tobacco Use Types Packs/Day Years Used Date Smoking Tobacco: Never Smokeless Tobacco: Never Alcohol Use Standard Drinks/Week Comments Not Currently 0 (1 standard drink = 0.6 oz pur e alcohol) none since 1982 Feeling Safe Answer Date Recorded Are you in a relationship wi th someone who hurts you emotionally and/or physically? No 08/17/2024 Food Insecurity Answer Date Recorded Patient needs follow up regardin 11/07/2024 Transportation Needs Answer Date Record ed Patient needs follow up regardin 11/07/2024 Housing Stability Answer Date Recorded Social/Environmental Concerns No concerns Utility Needs Answer Date Recorded Patient needs follow up regardin 11/07/2024 Sex and Gender Information Value Date Recorded Sex Assigned at Not on file Legal Sex Male 10:27 PM [place] Gender Identity Not on file Sexual Orientation Not on file Last Filed Vital Signs Vital Sign Reading Time Taken Comments Blood Pressure 122/74 09/21/2024 10:17 AM CDT Pulse 75 09/21/2024 10:17 AM CDT Temperature 37.2 C (99 F) 08/24/2024 12:17 PM [place] Respiratory Rate 18 08/24/2024 12:17 PM [place] Oxygen Saturation 98% 09/21/2024 10:17 AM CDT Inhaled Oxygen Concentration - - Weight 87.3 kg (192 lb 6.4 oz) 08/22/2024 5:12 A M [place] Height 182.9 cm (6') 09/21/2024 10:17 AM CDT Body Mass Index 26.09 08/18/2024 5:50 PM [place] Plan of Treatment Health Maintenance Due Date Last Done Comments DTAP/TDAP/TD VACCINES (1 - Tdap) 12/19/1959 PNEUMOCOCCAL VACCINE 50+ YEA RS (1 of 2 - PCV) 12/19/1958 ZOSTER VACCINE (1 of 2) 12/19/1989 RSV VACCINE (60+ or ) (1 - 1-dose 75+ series) 12/19/2014 INFLUENZA VACCINE (#1) 2025 COVID-19 Vaccine (3 - 2024- season) 02/28/202504/2021, 08/10/2020 Insurance [place] Advance Directives For more information, please contact: [phone] * Full Code (Latest Code Status on File) Date Activated Date Inactivated Comments 08/18/2024 12:08 PM 08/24/2024 8:36 PM Care Teams Technical Services Rep Relationship Specialty Start Date End Date Taz Sorto MD [address] [place] [address] PCP - General Internal Medicine 08/18/24
--- OUTSIDE RECORDS SUMMARY | 2025-03-02 17:10 | XMS_ITS | Encounter Summary ---
Author Organization [facility] Address [address] [place] [address] Care Team Providers Care Brake Operator Helper Name Role Phone Jaki Campo MD Primary Care Provider + Encounter Details Date Type Department Care Team ([facility] Contact Info) Description 11/25/2024 alphacityguides Message [facility] [phone] Michelle Tang, ANP-BC [address] [address] Test Results Social History Tobacco Use Types Packs/Day Years Used Date Smoking Tobacco: Never Passive Smoke Exposure: Past Smokeless Tobacco: Never Alcohol Use Standard Drinks/Week Comments Not Currently 0 (1 standard drink = 0.6 oz pur e alcohol) AUDIT-C Answer Date Recorded Q1: How often do you have a drink containing alc ohol? 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 [address] [place] [address] Robert Weeks, [address] [place] [address] 03/23/2025 8:00 AM CDT Office Visit [facility] [address] [place] [address] Robert Weeks, [address] [place] [address] 05/05/2025 1:30 PM HIGH PRESSURE KETTLE OPERATOR Office Visit [facility] [address] [place] [address] Quoc Adamson MD [address] [facility] [place] [address] 08/04/2025 1:00 PM HIGH PRESSURE KETTLE OPERATOR Office Visit [facility] - [place] [address] [place], [place] [address] Jaki Campo MD [address] [place], [place] [phone] documented as of this encounter Visit Diagnoses Not on filedocumented in this encounter Care Teams Brake Operator Helper Relationship Specialty Start Date End Date Jaki Campo MD [address] [place], [place] [phone] PCP - General FAMILY PRACTICE 09/30/24 documented as of this encounter
--- OUTSIDE RECORDS SUMMARY | 2025-03-02 17:10 | XMS_ITS | Encounter Summary ---
Author Organization [facility] Address [address] [place] [address] Care Team Providers Care Freelance Designer Name Role Phone Jaki Campo MD Primary Care Provider + Encounter Details Date Type Department Care Team (Late st Contact Info) Description 02/15/[address] 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 documented in this encounter Plan of Treatment Upcoming Encounters Date Type Department Care Team (Late st Contact Info) Description 03/05/2025 7:30 PM CDT Appointment [facility] [address] [place] [address] Robert Weeks, DO [address] [facility] [address] [place] [address] 03/23/2025 8:00 AM CDT Office Visit [facility] - [facility] [address] [place] [address] Robert Weeks, [address] [facility] [address] [place] [address] 05/05/2025 1:30 PM SALES REPRESENTATIVE [employer] Office Visit [facility] [address] [facility] [facility] [place] [address] Quoc Adamson MD Three [facility] [address] [place] [address] 08/04/2025 1:00 PM SALES REPRESENTATIVE [employer] Office Visit [facility] - [place] [address] [place] [address] Jaki Campo MD [address] [place] [phone] documented as of this encounter Visit Diagnoses Not on filedocumented in this encounter Care Teams Freelance Designer Relationship Specialty Start Date End Date Jaki Campo MD [address] [place], [place] [address] PCP - General FAMILY PRACTICE 09/30/24 documented as of this encounter
--- OUTSIDE RECORDS SUMMARY | 2025-03-02 17:10 | XMS_ITS | Encounter Summary ---
Author Organization [facility] Address [address] [place] [address] Care Team Providers Care Warehouse Logistics Coordinator Name Role Phone Jaki Campo MD Primary Care Provider + Encounter Details Date Type Department Care Team (Late st Contact Info) Description 11/26/2024 Caktus Message Enc [facility] [facility], [facility] [address] [place], [place] [phone] Michelle Tang, ANP-BC [facility]. [address] [place], [place] [phone] Test Results Social History Tobacco Use Types [...] PM CDT Legal Sex Male 9:25 AM RN APPEALS Gender Identity Male 01/28/2025 12:29 PM CDT Sexual Orientation Not on file documented as of this encounter Plan of Treatment Upcoming Encounters Date Type Department Care Team (Late st Contact Info) Description 03/05/2025 7:30 PM CDT Appointment [facility] [address] [place] [address] Robert Weeks, [address] [facility] [address] [place] [address] 03/23/2025 8:00 AM CDT Office Visit [facility] - [facility] [address] [facility] [place] [address] Robert Weeks, [address] [facility] [address] [place] [address] 05/05/2025 1:30 PM RN APPEALS Office [facility] [address] [facility] [address] [place] [address] Quoc Adamson MD Three [facility] [address] [place] [address] 08/04/2025 1:00 PM RN APPEALS Office Visit [facility] [place] [address] [place] [address] Jaki Campo MD [address] [place] [phone] documented as of this encounter Visit Diagnoses Not on filedocumented in this encounter Care Teams Warehouse Logistics Coordinator Relationship Specialty Start Date End Date Jaki Campo MD [address] [place], [place] [phone] PCP - General FAMILY PRACTICE 09/30/24 documented as of this encounter
--- OUTSIDE RECORDS SUMMARY | 2025-03-02 17:10 | XMS_ITS | Clinical Summary ---
Author Organization [place] [id number] [facility] Address [address] [place] [address] Care Team Providers Care Oil Spreader Operator Name Role Phone Robert Weeks DO Primary Care Provider Allergies No known active allergies Medications pantoprazole DR (PROTONIX) 40 mg EC tablet Take 1 tablet (40 mg total) by mouth daily Active Farxiga 10 mg tablet Take 1 tablet (10 mg total) by mouth daily 5 07/31/19 26 Active Eliquis 5 mg tablet Take 1 tablet (5 mg total) by mouth 2 (two) times a day 5 12/03/19 26 Active finasteride (PROSCAR) 5 mg tablet Take 1 tablet (5 mg total) by mouth daily Active sennosides 8.6 mg capsule Take 1 tablet by mouth daily 5 Active metoprolol XL (TOPROL-XL) 25 mg extended release tablet Take 3 tablets (75 mg total) by mouth supervisor spring up before breakfast 5 Active atorvastatin (LIPITOR) 20 mg tablet Take 1 tablet (20 mg total) by mouth nightly Active Breztri Aerosphere 160-9-4.8 mcg/actuation inhaler INHALE 2 PUFFS INTO THE LUNGS TWICE DAILY 5 Active acetaminophen (TYLENOL) 325 mg tablet Take 2 tablets (650 mg total) by mouth every 4 (four) hours as needed 5 Active albuterol HFA (PROVENTIL HFA,VENTOLIN HFA,PROAIR HFA) 90 mcg/actuation inhaler Inhale 2 puffs every 4 (four) hours as needed Active multivit-minera ls/folic acid (CENTRUM ADULT 50 PLUS ORAL) Take by mouth Ac tive Active Problems Problem Noted Date Diagnosed Date 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 ([facility]) [address] [place] [address] Diagnosis unknown 03/01/2025 3:14 PM CDT - 03/01/2025 11:59 PM CDT Hospital Encounter [facility] ([facility]) [address] [place] [address] Arrived Discharge Disposition: Discharge to home or self care 03/01/2025 3:14 PM CDT - 03/01/2025 11:59 PM CDT Hospital Encounter [facility] ([facility]) [address] [place] [address] Arrived Discharge Disposition: Discharge to home or self care 03/01/2025 1:00 PM CDT Office Visit [facility] Medicine Pulmonary [address] [place] [address] Advanced Medicine 8th [place] [address] [place] [address] Brad Vu MD Venous thromboembolism (VTE) (Primary Dx); Chronic obstructive pulmonary disease, unspecified COPD type (HCC); Chronic anticoagulation; Pulmonary hypertension (HCC) 03/01/2025 11:19 AM CDT - 03/01/2025 11:59 PM CDT Hospital Encounter [facility] ([facility]) [address] [place] [address] Portopulmonary hypertension (HCC) Discharge Disposition: Discharge to home or self care 03/01/2025 9:30 AM CDT - 03/01/2025 11:59 PM CDT Hospital Encounter [facility] Medicine Pulmonary [address] [place] [address] Portopulmonary hypertension (HCC) Discharge Disposition: Discharge to home or self care 03/01/2025 8:15 AM CDT - 03/01/2025 11:59 PM CDT Hospital Encounter [facility] [address]th [place] [address] Portopulmonary hypertension (HCC) Discharge Disposition: Discharge to home or self care 01/06/2025 Orders Only [facility] [address] [facility] 8th [place] [address] [place] [address] Brad Vu MD Portopulmonary hypertension (HCC) (Primary Dx) 01/06/2025 Orders Only [facility] Medicine Pulmonary [address] [facility] 8th [place] [address] [place] [address] Brad Vu MD Portopulmonary hypertension (HCC) (Primary Dx) from Last 3 Months Social History Tobacco Use Types Packs/Day Years Used Date Smoking Tobacco: Former Cigarettes Smokeless Tobacco: Never Tobacco Cessation:Counseling Given: Not Answered Sex and Gender Information Value Date Recorded Sex Assigned at Not on file Legal Sex Male 11:25 AM CDT Gender Identity Not on file Sexual Orientation Not on file Obstetrics History Last Filed Vital Signs Vital Sign Reading [...] Mass Index 24.9 03/01/2025 1:23 PM CDT Plan of Treatment Health Maintenance Due Date Last Done Comments Depression Screening 1940 Fall Risk Assessment 1940 DTaP/Tdap/Td Vaccine (1 - Tdap) 12/19/1950 Hepatitis B Screening 12/19/1957 Pneumococcal vaccine 65+ (1 of 2 - PCV) 12/19/1958 Zoster Vaccine (1 of 2) 12/19/1989 Well Visit 65+ 12/19/2004 Covid-19 Vaccine ( season) 2025 05/03/2021, 09/07/2020, 08/10/2020 Influenza Vaccine (#1) 2025 Procedures Procedure Name Priority Date/Time Associated Diagnosis Comments NM OUTSIDE CONSULT Routine 03/01/2025 11 :33 PM CDT Diagnosis unknown NM OUTSIDE REFERENCE Routine 03/01/2025 3:14 PM CDT XR TRANSFER OF OUTSIDE FILMS Routine 03/01/2025 3:[address] CHEST PE AND CHEST HIGH RESOLUTION W CONTRAST Schedule Routine, Read Routine (OP Routine) 03/01/2025 12:22 PM CDT Portopulmonary hypertension (HCC) POCT CREATININE - DEVICE Routine 03/01/2025 11:57 AM CDT PULMONARY FUNCTION TEST (PFT) Routine 03/01/2025 11:08 AM CDT Portopulmonary hypertension (HCC) TRANSTHORACIC ECHO (TTE) COMPLETE W DOPPLER/CF W CONTRAST W BUBBLE Routine 03/01/2025 9:49 AM CDT Portopulmonary hypertension (HCC) from Last 3 Months Results * NM Outside Consult (03/01/2025 11:33 [...] images may or may not represent the grayling source data set and thus may contain [...] STUDY INITIALLY PERFORMED: 12/03/2024, images acquired at [facility]. TYPE OF STUDY: Ventilation/perfusion scintigraphy. The images [...] STUDY INITIALLY PERFORMED: 12/03/2024, images acquired at [facility]. TYPE OF STUDY: Ventilation/perfusion scintigraphy. The images [...] images may or may not represent the grayling source data set and thus may contain changes that may lower the accuracy of this second-opinion interpretation. Dictated by: Clarke Wiseman MD, PHD The radiology attending physician has personally reviewed this study, and had reviewed and/or edited this written report and agrees with it. Electronically signed by: Norma Riley M.D. Brad Vu MD IMG NM PROCEDURES Final R esult * NM Outside Reference (03/01/2025 3:14 PM CDT) Anatomical Region Laterality Modality N/A Nuclear Medicine 03/02/2025 2:49 PM CDT Addenda Addendum by Riley Kelly MD on 03/02/2025 2:49 PM CDT A consult was requested on 03/02/2025 date. Please see new accession #[id number] for the consult interpretation. Edited by: Humberto Admin/Lawyer [facility] Electronically signed by: Riley Kelly M.D. Impressions 03/01/2025 3:14 PM CDT These images are for Reference purposes only and have not been reviewed by [facility]. There will be no report generated by a [facility] Radiologist. Narrative 03/01/2025 3:14 PM CDT EXAMINATION: Images For Reference Purposes Only Procedure Note Riley Kelly MD - 03/01/2025 EXAMINATION: Images For Reference Purposes Only IMPRESSION:These images are for Reference purposes only and have not beenreviewed by [facility]. There will be no reportgenerated by a [facility] Radiologist. us Brad Vu MD [facility] NM PROCEDURES Edited Result - Final * XR Outside Reference (03/01/2025 3:14 PM CDT) Impressions [facility] - 03/01/2025 3:14 PM CDT These images are for Reference purposes only and have not been reviewed by [facility]. There will be no report generated by a [facility] Radiologist. Narrative [facility] - 03/01/2025 3:14 PM CDT EXAMINATION: Images For Reference Purposes Only us Brad Vu MD [facility] XR PROCEDURES Final R esult [facility] * CT Chest PE (CTA) and Chest [...] Electronically signed by: Walter Alarcon M.D. Brad Vu MD IMG CT PROCEDURES Final R esult * (ABNORMAL) POCT creatinine (03/01/2025 11:57 AM CDT) [facility] Creatinine POC 1.8(H) 0.8 - 1.3 mg/dL Blood 03/01/2025 11:5 7 AM CDT 03/01/2025 11:57 AM CDT Brad Vu MD LAB POCT ORDERABLES - DEV ICE Final Result [facility] [place] [address] * Pulmonary Function Test - (03/01/2025 11:08 AM CDT) FVC PRE 2.30 L [facility] FVC %PRE PRED 61 % [facility] FVC POST 2.90 L [facility] FVC %POST PRED 77 % [facility] FEV1 PRE 0.76 L [facility] FEV1 %PRE PRED 27 % [facility] FEV1 POST 0.97 L [facility] FEV1 %POST PRED 35 % [facility] FEV1/FVC PRE 33.0 % [facility] FEV1/FVC POST 33.5 % [facility] FRC PL PRE 5.12 L [facility] FRC PL %PRE PRED 130 % [facility] RV PRE 4.07 L [facility] RV %PRE PRED 145 % [facility] TLC PRE 6.47 L [facility] TLC %PRE PRED 90 % [facility] DLCO PRE 9.2 ml/min/mmH g [facility] DLCO %PRE PRED 38 % [facility] FIO2 % 21.00 % [facility] PaO2 58.0 mmHg [facility] PaCO2 43.0 mmHg [facility] pH 7.43 [facility] A-aDO2 POC 38.0 mmHg [facility] METHGB % 0.4 % [facility] COHb POC 1.2 % [facility] HCO3 28.5 mEq/L [facility] Anatomical Region Laterality Modality PFT 03/01/2025 9:45 AM CDT Narrative 03/01/2025 4:01 PM CDT Table formatting from the original result was not included. [facility] Division of Pulmonary & Critical Care Medicine [address] [place] [address]; [facility]; [place] [id number]; [phone] Pulmonary Function Laboratory Pulmonary Stress Test Simple/Oxygen Assessment Patient: Adilene Martinezh Date: 03/01/2025 : 1940 Ht: 70.5 IN [...] Work [distance (m) x body wt (kg)]: 63881 kg.m (normal >60,000kg.m) Oxygen required to maintain [...] with the written final report. PFT performed at:->[facility] Adult PFT Lab- [facility]-8D Procedure:->Oxygen Assessment Titration Procedure:->Lung Volumes Procedure:->Spirometry Procedure:->Spirometry [...] and %HbO2 is age dependent. However, the [facility] Pulmonary Function Laboratory defines hypoxemia as a PaO2 <56 mm Hg or a %HbO2 <89%. Starting on June of 2024 the [facility] Pulmonary Function Laboratory utilizes race neutral GLI Global normative equations. us Brad Vu MD PFT ORDERABLES Final Res ult * TRANSTHORACIC ECHO (TTE) COMPLETE W DOPPLER/CF W CONTRAST W BUBBLE (03/01/2025 9:49 AM CDT) Anatomical Region Laterality Modality Ultrasound 03/01/2025 8:45 AM CDT Narrative 03/01/2025 10:15 AM CDT [facility] [place] [address] Transthoracic Echocardiographic Report Patient Name: ADILENE ANTONY K : 1940 (84y 2m) Gender: M Study Date: 03/01/2025 08:45:58 AM Ht(Inch): 71 Wt(Lb): 195.99 BSA: 2.11 Leather Lacer: Tatyana Mcintyre RDCS Location: [facility] Order Provider: RBAD VU Heart Rate: 58 BMI: 27.33 BP: 152 / 66 Ref Provider: BRAD VU PROCEDURES: Echocardiographic Report: Transthoracic complete echo [...] Note De Neva Brunner MD - 03/01/2025 [facility] [place] [address] Transthoracic Echocardiographic Report Patient Name: ADILENE ANTONY K : 1940 (84y 2m) Gender: M Study Date: 03/01/2025 08:45:58 AM Ht(Inch): 71 Wt(Lb): 195.99 BSA: 2.11 Leather Lacer: Tatyana Mcintyre RDCS Location: [facility] Order Provider:BRAD VU Heart Rate: 58 BMI: 27.33 BP: 152 / 66 Ref Provider: BRAD VU PROCEDURES: Echocardiographic Report: Transthoracic complete echo [...] LA Length 4C 5.29 cm MV Decel [id number] msec [ 104.00 - 258.00 ] RV [...] Ferris MD 03/01/2025 10:14:57 AM CDT us Brad Vu MD CV ECHO PROCEDURES Final Result from Last 3 Months Insurance ([place]) [address] [facility] Care Teams Oil Spreader Operator Relationship Specialty Start Date End Date Robert Weeks DO [address] [facility] [address] [place] [address] PCP - General Internal Medicine 12/07/24
--- OUTSIDE RECORDS SUMMARY | 2025-03-02 17:10 | XMS_ITS | Clinical Summary ---
Author Organization [facility] Address [address] [place] [address] Care Team Providers Care Program Support Specialist Name Role Phone Jaki Kim MD Primary Care Provider + Allergies Active Allergy Reactions Criticality Noted Date Comments Cholestyramine Unknown 01/17/2025 Medications diclofenac sodium (VOLTAREN) 1 % gel Apply 4 g topically. 09/08/19 25 Active traMADol (ULTRAM) 50 MG tablet Take 1 tablet (50 mg total) by mouth. 09/08/19 25 Active albuterol sulfate HFA 108 (90 Base) MCG/ACT inhalerIndicatio ns:Mild persistent asthma without complication (HHS/HCC) Inhale 2 puffs into the lungs every 6 (six) hours as needed. 18 g 3 10/01/19 25 Active atorvastatin (LIPITOR) 20 MG tabletIndication s:RVF (right ventricular failure) (CMS/HCC HHS/HCC) Take 1 tablet (20 mg total) by mouth nightly at bedtime. 90 tablet 3 10/01/19 25 026 Active furosemide (LASIX) 20 MG tabletIndication s:Congestive heart failure, unspecified HF chronicity, unspecified heart failure type (CMS/HCC HHS/HCC) Take 1 tablet (20 mg total) by mouth daily as needed. As needed for swelling. 10/07/19 25 Active pantoprazole EC (PROTONIX) 40 MG tabletIndication s:Other acute pulmonary embolism without acute cor pulmonale (CMS/HCC HHS/HCC) Take 1 tablet (40 mg total) by mouth daily. 90 tablet 3 11/04/19 25 026 Active ELIQUIS 5 MG tabletIndication s:Other acute pulmonary embolism without acute cor pulmonale ([facility] HHS/HCC) Take 1 tablet (5 mg total) by mouth 2 (two) times daily. 180 tablet 3 12/03/19 25 026 Active metoprolol succinate ER (TOPROL-XL) 25 MG 24 hr tabletIndication s:Pulmonary hypertension ([facility] HHS/HCC) Take 3 tablets (75 mg total) by mouth every morning. 90 tablet 5 12/10/19 25 Active finasteride (PROSCAR) 5 MG tabletIndication s:Benign prostatic hyperplasia with incomplete bladder emptying Take 1 tablet (5 mg total) by mouth daily. 30 tablet 11 12/10/19 25 Active Sennosides (SENNA) 8.6 MG CapIndications:C onstipation, unspecified constipation type Take 1 tablet by mouth daily. 30 capsule 5 12/10/19 25 Active albuterol sulfate HFA 108 (90 Base) MCG/ACT inhalerIndicatio ns:TRUJILLO (dyspnea on exertion),COPD (chronic obstructive pulmonary disease) ([facility] HHS/HCC) Inhale 2 puffs into the lungs every 4 (four) hours as needed for Wheezing. 18 g 3 01/26/20 25 Active fluticasone-salm eterol (ADVAIR DISKUS) 100-50 MCG/ACT inhalerIndicatio ns:COPD (chronic obstructive pulmonary disease) ([facility] HHS/HCC) Inhale 1 puff into the lungs 2 (two) times daily. 60 each 3 01/27/20 25 Active tiotropium (SPIRIVA RESPIMAT) 2.5 MCG/ACT inhaler (SPIRIVA RESPIMAT)Indicat ions:COPD (chronic obstructive pulmonary disease) ([facility] HHS/HCC) Inhale 2 puffs into the lungs daily. Please provide assembled. 4 g 2 01/27/20 25 Active FARXIGA 10 MG tabletIndication s:Stage 3a chronic kidney disease ([facility]),Conges tive heart failure, unspecified HF chronicity, unspecified heart failure type ([facility] HHS/HCC) Take 1 tablet (10 mg total) by mouth daily. 90 tablet 1 02/02/20 25 026 Active dapagliflozin (FARXIGA) 10 MG tabletIndication s:Stage 3a chronic kidney disease ([facility]),Conges tive heart failure, unspecified HF chronicity, unspecified heart failure type ([facility]) Take 1 tablet (10 mg total) by mouth daily. 90 tablet 1 12/03/19 25 025 Discontinued Active Problems Problem Noted Date Diagnosed Date Mild persistent asthma without complication ([facility]) 09/30/2024 Overview (01/28/2025): He takes a combination of albuterol as needed, Advair, Spiriva. He is on 3 L O2 only when active. BPH (benign prostatic hyperplasia) 09/30/2024 Assessment & Plan (11/03/2024 3:35 PM CDT): New diagnosis. Trial tamsulosin 0.4 mg nightly. Chronic right-sided congesti ve heart failure ([facility]) 08/24/2024 Assessment & Plan (10/06/2024 6:24 PM CDT): Appears euvolemic today. BNP last week was downtrending. No indication to repeat again today. Echo scheduled for October. Infective myositis of left foot 08/20/2024 Pulmonary hypertension ([facility]) 025 Overview (01/28/2025): Noted during hospitalization for pulmonary embolism. Follow-up echo showed persistent right ventricular enlargement and concerns for increased right ventricular pressures suggesting pulmonary hypertension. Underwent sleep study, awaiting results. V/Q scan suggest chronic PE and he will be seeing a specialist at [facility]. Assessment & Plan (11/03/2024 3:38 PM CDT): Referral to cardiology and pulmonology to assist in ensuring that his management is optimized prior to returning home to [facility]. RVF (right ventricular failure) ([facility] ) 08/19/2024 Bilateral leg edema 08/18/2024 Overview (11/03/2024): Was taking furosemide following hospitalization in September 2024. Now he is only taking intermittently when he notes edema. He typically has foot edema but it does not extend up his lower extremities. He does wear compression stockings. He has increased his fluid intake. Assessment & Plan (11/03/2024 3:35 PM CDT): Overall stable. Appears euvolemic today. 2+ pitting edema only in the feet and not extending up the lower extremities. Assessment & Plan (10/06/2024 6:23 PM CDT): Lymphedema now at baseline. Compression appears adequate. Recommend holding furosemide and only using PRN if edema worsens. Provided instructions on how to monitor for edema. Will repeat BMP to ensure RAY is resolved. Normocytic anemia 08/18/2024 Pulmonary embolism ([facility]) 08/18/2024 Overview (01/28/2025): In June 2024 he was admitted in [facility] for malaria/pneumonia/typhoid fever. He was treated and discharged on oral medications. He noted worsening symptoms and was taken to a tertiary center and admitted to the ICU. Again pneumonia and bronchiectasis was diagnosed along with bilateral pulmonary embolism and pulmonary edema with severe anemia for malaria as well as acute kidney injury. He was started on pressors due to cardiogenic shock. He was transfused several units of PRBC and required IV antibiotics. He was also on dialysis temporarily. He required heparin drip and high flow oxygen but was never intubated. At that time he was in the ICU for about 3 weeks until he was able to switch to nasal cannula oxygen and oral antibiotics along with Xarelto. Now he is on eliquis. Assessment & Plan (11/03/2024 3:37 PM CDT): He is now on Eliquis 5 mg twice daily. This will likely continue lifelong due to the extent of his pulmonary embolism. Ordered CBC to evaluate his anemia and ensure that his hemoglobin is stable. CKD (chronic kidney disease), stage III 08/18/19 25 Overview (01/28/2025): GFR 50s. Assessment & Plan (11/03/2024 3:38 PM CDT): Repeat CMP today to ensure kidney function has normalized. If not we will consider starting Farxiga. Encounters Date Type Department Care Team Description 02/15/2025 MyChart Message Enc [address] [place] [address] Rober, [facility] Provider sleep studay 02/07/2025 Scan [facility] HEALTH INFO SRVCS Scanned, Doc Med Group 02/07/2025 Telephone [facility] [address] [address] Elissa Whaley DO Results 02/06/2025 Results Follow-Up [address] [place] [address] Elissa Whaley DO Home Sleep Study - WatchPat ([id number]) 02/01/[address] [place] [phone] Jaki Kim MD Refill Request 01/28/2025 12:30 PM CDT Office Visit [address] [place] [address] [phone] Jaki Kim MD Pre-Op Exam (Patient is here for pre-op clearance for cataract removal to be done at [facility]. ) 01/28/2025 Travel 01/25/2025 2:15 PM CDT Office Visit [facility], [address] [phone] Quoc Adamson MD CHF (2 month follow up) 01/25/2025 Travel 01/25/2025 Telephone [facility] [address] [address] Elissa Whaley DO Medication 01/24/2025 10:46 AM CDT - 01/24/2025 11:59 PM CDT Hospital Encounter [facility] [address] [place] [address] Jaki Kim MD Hypertension Discharge Disposition: Home or Self Care (Routine Discharge) 01/24/2025 Telephone [facility] [address] [place] [address] Elissa Whaley, Information 01/24/[address] [place] [address] Jaki Kim MD Surgical Clearance 01/24/2025 Travel 01/17/2025 9:00 AM CDT - 01/17/2025 11:59 PM CDT Hospital Encounter [facility] [place]piratory [place] [address] Elissa Whaley DO Discharge Disposition: Home or Self Care (Routine Discharge) 01/17/2025 Scan [facility] HEALTH INFO SRVCS Scanned, Doc Med Group PFT (SCAN) 01/17/2025 Telephone [facility] [id number] [place] [phone] Elissa Whaley, Question 01/17/2025 Travel 01/03/2025 Orders Only [address] [place] [address] Jaki Kim MD 12/06/2024 MyChart Message Enc [address] [place] [address] Jaki Kim MD Sleep Study 12/06/[address] [place] [address] Jaki Kim MD Referral 12/06/2024 Travel 12/03/2024 8:00 AM CDT - 12/03/2024 11:59 PM CDT Hospital Encounter [facility] Nuclear Medicine [facility] [place] [address] Elissa Whaley DO Discharge Disposition: Home or Self Care (Routine Discharge) 12/03/2024 Results [facility] [address] [facility], [address] [place] [address] Elissa Whaely DO NM LUNG SCAN VENT+PERF, XR CHEST PA+LAT, Complete PFT (pre/post [place], Lung Vol, Diff Capacity) ([id number], [id number], [id number], [id number]) 12/03/2024 Travel 12/01/2024 8:00 AM CDT Office Visit [facility] [address] [facility], [address] [place] [address] Elissa Whaley DO New Patient (Worsening SOB on exertion; coughing up yellow sputum ) 12/01/2024 Travel 11/30/2024 MyChart Message Enc [facility] [place] [address] [place] [address] Jaki Kim MD Re right heart from Last 3 Months Immunizations Immunization Administration Dates Next Due MODERNA COVID-19 (12+) MRNA, LNP-S, PF, 100 MCG/ 0.5 ML DOSE 09/07/2020,08/10/2020 Family History Medical History Relation Comments Mental Health Daughter Relation Status Comments Daughter Father Maternal Grandfather Maternal Grandmother Mother Paternal Grandfather Paternal Grandmother Social History Tobacco Use Types Packs/Day Years Used Date Smoking Tobacco: Never Passive Smoke Exposure: Past Smokeless Tobacco: Never Tobacco Cessation:Counseling Given: Yes Alcohol Use Standard Drinks/Week Comments Not Currently [...] PM CDT 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 Gender Identity Male 01/28/2025 12:29 PM CDT Sexual Orientation Not on file Last Filed Vital Signs Vital Sign Reading Time Taken Comments Blood Pressure 125/75 01/28/2025 12:32 PM CDT Pulse 78 01/28/2025 12:32 PM CDT Temperature 36.2 C (97.2 F) 01/28/2025 12:32 PM CDT Respiratory Rate 28 01/28/2025 12:32 PM CDT Oxygen Saturation 96% 01/28/2025 12:32 PM CDT Inhaled Oxygen Concentration - - Weight 79.8 kg (176 lb) 01/28/2025 12:32 PM CDT Height 180.3 cm (5' 11) 01/28/2025 12:32 PM CDT Body Mass Index 24.55 01/28/2025 12:32 PM CDT Plan of Treatment Upcoming Encounters Date Type Department Care Team (Late st Contact Info) Description 03/05/2025 7:30 PM CDT Appointment [facility] [address] [place] [address] Elissa Whaley DO [address] [facility] [address] [place] [phone] 03/23/2025 8:00 AM CDT Office Visit [facility] - [facility] [address] [place] [address] Elissa Whaley DO [address] [place] [address] 05/05/2025 1:30 PM TRAFFIC TECHNICIAN Office Visit [facility] [address] [place] [address] Quoc Adamson MD [address] [facility] [place] [address] 08/04/2025 1:00 PM TRAFFIC TECHNICIAN Office Visit [facility] Family [facility] - [place] [address] [place], [place] [address] Jaki Kim MD [address] [place], [place] [phone] Health Maintenance Due Date Last Done Comments DTaP, Tdap and Td Vaccines ( 1 - Tdap) 12/19/1958 Pneumococcal Vaccine: 50+ Years (1 of 2 - PCV) 12/19/1958 Zoster Vaccines (1 of 2) 12/19/1989 RSV Immunization or 60+ Years (1 - 1-dose 75+ series) 12/19/2014 COVID-19 Vaccine (4 2023-2 5 season) 2024 05/03/2021, 09/07/2020, 08/10/2020 PHQ-2 (Physician [employer] [place]) Completed 09/30/2024 Meningococcal B Vaccine Aged Out No l onger eligible based on patient's age to complete this topic Meningococcal Vaccine Aged Out No estrella flores eligible based on patient's age to complete this topic RSV Immunizations Under 20 Months Aged Out No longer eligible b ased on patient's age to complete this topic Procedures Procedure Name Priority Date/Time Associated Diagnosis Comments COLLECTION VENOUS BLOOD VENIPUNCTURE Routine 01/28/2025 1:09 PM CDT RVF (right ventricular failure) ([facility] HHS/HCC) Pulmonary hypertension ([facility] HHS/HCC) Pulmonary embolism, other, unspecified chronicity, unspecified whether acute cor pulmonale present ([facility] HHS/HCC) Mild persistent asthma without complication ([facility]) Chronic right-sided congestive heart failure ([facility] HHS/HCC) Stage 3a chronic kidney disease (CMS/HCC) Preoperative examination Age-related cataract of both eyes, unspecified age-related cataract type BASIC METABOLIC PANEL Routine 01/28/2025 12:54 PM CDT Stage 3a chronic kidney disease (CMS/HCC) HOME SLEEP STUDY - WATCHPAT Routine 01/24/2025 11:00 AM CDT Pulmonary hypertension (CMS/HCC HHS/HCC) PULMONARY FUNCTION TEST Routine 01/17/2025 9:00 AM CDT Pulmonary hypertension (CMS/HCC HHS/HCC) PFT GENERIC (SCAN ORDER) 01/17/2025 NM LUNG SCAN VENT+PERF LETICIA 12/03/2024 10:30 AM CDT Pulmonary hypertension (CMS/HCC HHS/HCC) XR CHEST PA+LAT LETICIA 12/03/2024 10:29 AM CDT Pulmonary hypertension (CMS/HCC HHS/HCC) from Last 3 Months Results * (ABNORMAL) BASIC METABOLIC PANEL (01/28/2025 12:54 PM CDT) SODIUM S/P/B 139 136 - 145 MMOL/L 01/29/2025 9:16 AM CDT [facility] POTASSIUM S/P/B 4.3 3.5 - 5.1 MMOL/L 01/29/2025 9:16 AM CDT [facility] CHLORIDE S/P/B 102 98 - 107 MMOL/L 01/29/2025 9:16 AM CDT [facility] CO2 29.8 21 - 32 MMOL/L 01/29/2025 9:16 AM CDT [facility] GLUCOSE 88 70 - 99 MG/DL 01/29/2025 9:16 AM CDT [facility] BUN 28(H) 7 - 18 MG/DL 01/29/2025 9:16 AM CDT [facility] CREATININE S/P/B 1.53(H) 0.70 - 1.30 MG/DL 01/29/2025 9:16 AM CDT [facility] CALCIUM S/P/B 9.7 8.4 - 10.5 MG/DL 01/29/2025 9:16 AM CDT [facility] ANION GAP 7.2 5 - 15 MMOL/L 01/29/2025 9:16 AM CDT [facility] Comment:REFERENCE RANGE NOT ESTABLISHED OSMOLALITY (CALC) 293 MOSM/KG 025 9:16 AM CDT [facility] Comment:REFERENCE RANGE NOT ESTABLISHED GFR ESTIMATE 44(L) >90 ML/MIN/1. 73 M2 01/29/2025 9:16 AM CDT [facility] GFR NOTES GFR REFERENCE S: 01/29/2025 9:16 AM CDT [facility] Comment: THE ESTIMATED GFR IS CALCULATED USING THE 2020 CKD-EPI EQUATION. THE FOLLOWING CATEGORIES FOR GRADING RENAL FUNCTION ARE RECOMMENDED BY THE INTERNATIONAL SOCIETY OF NEPHROLOGY (KDIGO 2012 CLINICAL PRACTICE GUIDELINE). G1,NORMAL OR HIGH: >89 ml/min/1.73 m2 G2,MILDLY DECREASED: 60-89 ml/min/1.73 m2 G3A,MILDLY TO MODERATELY DECREASED: 45-59 ml/min/1.73 m2 G3B,MODERATELY TO SEVERELY DECREASED: 30-44 ml/min/1.73 m2 G4,SEVERELY DECREASED: 15-29 ml/min/1.73 m2 G5,KIDNEY FAILURE: <15 ml/min/1.73 m2 01/28/2025 12:5 4 PM CDT us Jaki Kim MD LABORATORY Final Re sult [facility] [place] [address] [place] [address], [place] [phone] * Home Sleep Study - WatchPat ([id number]) (01/24/2025 11:00 AM CDT) Narrative [facility] - 01/24/2025 11:00 AM CDT Massimo Hurley MD 02/01/2025 1:30 PM Patient Information First Name: ADILENE Last Name: ARPAN ID: [id number] Date: 1940 Age: 84 Gender: Male BMI: 26.2 (W=187 lb, H=5' 11) Sleep Study Information Study Date:01/24/2025 Referring Physician Information First Name: Last Name: JAKI KIM 5.3.82.5 / 4.2.1229 / 82 S/H/A Version: WATCHPAT HOME SLEEP APNEA TEST REPORT SUMMARY DATA SLEEP STUDY/ARCHITECTURE: This patient was studied using a WatchPAT home sleep study device, The evaluation was initiated on 01/24/2025 at 8:33:03 PM and was stopped at 6:41:28 AM. The total recording time was 10 hrs, 8 min with total sleep evaluation of 7 hrs, 42 min. ANALYSIS: (pAHI = PAT Apnea-Hypopnea Index, pRDI = PAT Respiratory Disturbance Index) Total pAHI 4%: 10.0 Total pRDI: 10.3 Average Sleep Oxygen Saturation: 89 Minimum Sleep Oxygen Saturation: 78 Mean Heart Rate During Sleep: 66 Afib Total Duration: Not detected Afib Longest Duration: Not detected (Afib events < 60 seconds may be artifact) Premature Beats per Minute: 2.0 Rev. Printed on:02/01/2025 01/24/2025,[id number],1940,Male *The automatic analysis events or stages have been edited. 539 Page 1 of 2 Sleep Study Report SUMMARY/DIAGNOSIS 1.) Mild Obstructive Sleep Apnea. 2.) This patient's oxygen saturation was at or below 88.0% for 155.4 minutes during this study with an average oxygen saturation of 89.0%. 3.) Premature beats were noted during this study. RECOMMENDATIONS Meredith treatment option should be discussed with the patient and a plan for treatment should be made. Potential health consequences and medical importance of treatment should also be discussed with the patient. This patient's oxygen saturation was at or below 88.0% for 155.4 minutes during this study with an average oxygen saturation of 89.0%. Possible need to do additional testing with full night titration with possible supplemental oxygen addition if there are still significant desaturations when patient's AHI is within normal limits should be considered. Also, premature beats were noted during this study. The possibility of additional medical evaluation based on noted desaturations and bradycardia should be considered. This patient should maintain good sleep hygiene techniques, maintain a consistent sleep/wake schedule with adequate hours of sleep, and avoid hazardous activities when sleepy. The patient should be cautioned about factors that may potentially exacerbate snoring and other sleep-related issues, such as CO TEACHER depressants, especially at bedtime. Raw data reviewed and electronically signed by: Massimo Hurley on 02/01/2025 1:28:57 PM at 6:29:01PM, [facility] us Jaki Kim MD SLEEP CENTER ORDERABLES Final Result [facility] [address] [place] [address], [place] [phone] * Complete PFT (pre/post [place], Lung Vol, Diff Capacity) ([id number], [id number], [id number], [id number]) (01/17/2025 9:00 AM CDT) Narrative [facility] - 01/17/2025 9:00 AM CDT Elissa Whaley DO 01/23/2025 3:13 PM [facility] PULMONARY FUNCTION TEST REPORT Adilene Julian INTERPRETATION Please see attached scanned PFT report for raw values and technologist's comments. SPIROMETRY: Forced vital capacity (in liters): Pre-bronchodilator: 0.94,29% Post-bronchodilator: 2.35L,72%% FEV1: (in liters) Pre-bronchodilator: 0.53L,22% Post-bronchodilator: 0.93L,39% FEV1/FVC ratio: 57 % There is a VERY significant response to bronchodilator administration. Inspection of the patient's flow-volume loops shows scooping of the expiratory limb LUNG VOLUMES: TLC is 107 % RV is 217 % DLCO: uDLCO 32 % 6mwt / O2 titration: Home Oxygen evaluation resting oxygen saturation Resting Saturation off Oxygen: 92 % Home oxygen evaluation exercise saturation Exercise Oxygen Saturation on Oxygen: 90 % Exercise Oxygen Settin Liters/Minute Exercise Saturation off Oxygen: 85 % Distance Walked: 6 MINUTES 100 YARDS Home oxygen evaluation sleeping oxygen saturation Oxygen Evaluation Comment: PT QUALIFIED FOR 3L NC WITH ACTIVITY PT SPO2 92% ON RA AT REST PT SPO2 85% ON 1L WITH ACTIVITY PT SPO2 86% ON 1L WITH ACTIVITY PT SPO2 88% ON 2L WITH ACTIVITY Pt SPO2 91% ON 3L WITH ACTIVITY IMPRESSION: 1. Severe obstructive ventilatory limitation is present, FEV1 0.39L, 74%. 2. Air trapping is present. No restriction. 3. There was a very significant bronchodilator response during the test. 4. Uncorrected DLCO was severely reduced.. 5. The patient did require supplemental O2 during the above level of activity, needed no O2 at rest, needed 3L with exertion. Dr. Fran Whaley [facility] Pulmonary Medicine Elissa Whaley DO PFT ORDERABLES Final Resu lt [facility] [address] [place] [address], * PFT GENERIC (SCAN ORDER) (01/17/2025) 01/17/2025 Doc Med Group Scanned SCANNING Final Resu lt * NM LUNG SCAN VENT+PERF (12/03/2024 10:30 AM CDT) Anatomical Region Laterality Modality Chest Nuclear Medicine 12/03/2024 11:0 2 AM CDT Impressions 12/03/2024 11:23 AM CDT IMPRESSION: 1. High likelihood for pulmonary embolism with mismatched defects in the right upper and middle lobe. It is uncertain whether these defects are acute or chronic given lack of prior ventilation/perfusion imaging for comparison. If chronic, these findings could be consistent with a chronic thromboembolic etiology for the patient's pulmonary hypertension. 2. Additional defects involving the lingula and lung bases appear to match areas of hypoventilation on initial breath imaging. The results of this study were messaged to Dr. Elissa Whaley by Dr. Ana Benitez via a [employer] message at 11:21 AM on 12/03/2024. Ordered By: ELISSA WHALEY Interpreted By: Ana Benitez MD, 12/03/2024 11:02 AM Narrative 12/03/2024 11:23 AM CDT [address] [address] EXAMINATION: VENTILATION-PERFUSION SCINTIGRAPHY DATE OF STUDY: 12/03/2024 RADIOPHARMACEUTICAL: Ventilation: 15.6 mCi Xe-133 gas by inhalation Perfusion: 3.6 mCi Tc-99m MAA i.v. HISTORY: Per clinical notes in the EMR, patient was diagnosed with a right lower lobe PE in [place] at the beginning of 2024. Reports from outside CTA of chest dated 08/19/2024 was negative for PE at that time. Pulmonary hypertension and concern for CHF COMPARISON: No prior ventilation perfusion scintigraphy. No recent CTA chest available in our system. There is a CTA chest dated 04/15/2021. FINDINGS: The comparison chest radiograph performed on 12/03/2024 demonstrates no pulmonary infiltrates or pleural fluid. The Xe-133 ventilation images show a hypoventilation at the lung bases, left greater than right as well as the left midlung which ventilates on equilibrium phase imaging. Mild diffuse xenon retention on washout imaging. Impression The perfusion images show a large defect in the apical segment right upper lobe and a moderate to large defect in the posterior segment right upper lobe. There appear to be additional defects involving the lingula, right middle lobe, and anterior basal right lower lobe. The lingular defect and anterior basal right lower lobe defect appears to match areas of hypoventilation on initial breath imaging. There is heterogeneous perfusion and mild oligemia in the left lower lobe which also appears to match an area of hypoventilation on initial breath imaging. Procedure Note Ana Benitez MD - 12/03/[address] [address] EXAMINATION: VENTILATION-PERFUSION SCINTIGRAPHY DATE OF STUDY: 12/03/2024 RADIOPHARMACEUTICAL: Ventilation: 15.6 mCi Xe-133 gas by inhalation Perfusion: 3.6 mCi Tc-99m MAA i.v. HISTORY: Per clinical notes in the EMR, patient was diagnosed with a rightlower lobe PE in [place] at the beginning of 2024. Reports from outside CTAof chest dated 08/19/2024 was negative for PE at that time. Pulmonaryhypertension and concern for CHF COMPARISON: No prior ventilation perfusion scintigraphy. No recent CTAchest available in our system. There is a CTA chest dated 04/15/2021. FINDINGS: The comparison chest radiograph performed on 12/03/2024demonstrates no pulmonary infiltrates or pleural fluid. The Xe-133ventilation images show a hypoventilation at the lung bases, left greaterthan right as well as the left midlung which ventilates on equilibriumphase imaging. Mild diffuse xenon retention on washout imaging. ImpressionThe perfusion images show a large defect in the apical segment right upperlobe and a moderate to large defect in the posterior segment right upperlobe. There appear to be additional defects involving the lingula, rightmiddle lobe, and anterior basal right lower lobe. The lingular defect andanterior basal right lower lobe defect appears to match areas ofhypoventilation on initial breath imaging. There is heterogeneousperfusion and mild oligemia in the left lower lobe which also appears tomatch an area of hypoventilation on initial breath imaging. IMPRESSION: 1. High likelihood for pulmonary embolism with mismatched defects in theright upper and middle lobe. It is uncertain whether these defects areacute or chronic given lack of prior ventilation/perfusion imaging forcomparison. If chronic, these findings could be consistent with a chronicthromboembolic etiology for the patient's pulmonary hypertension. 2. Additional defects involving the lingula and lung bases appear to matchareas of hypoventilation on initial breath imaging. The results of this study were messaged to Dr. Elissa Whaley by Dr.Brittany Benitez via a [employer] message at 11:21 AM on 12/03/2024. Ordered By: ELISSA WHALEY Interpreted By: Ana Benitez MD, 12/03/2024 11:02 AM us Elissa Whaley DO [facility] Final Resu lt * XR CHEST PA+LAT (12/03/2024 10:29 AM CDT) Anatomical Region Laterality Modality Chest Radiographic Maria Eugenia ging 12/03/2024 10:3 2 AM CDT Impressions 12/03/2024 10:32 AM CDT IMPRESSION: Stable chest, no acute findings. Ordered By: ELISSA WHALEY Interpreted By: Richard Cooper MD, 12/03/2024 10:32 AM Narrative 12/03/2024 10:32 AM CDT [place] [id number] 2 VIEWS OF THE CHEST Clinical history: Shortness of breath Comparison: 02/10/2025 2 views of the chest demonstrate the cardiac silhouette to be normal in size. The pulmonary vessels appear normal. The Lungs are clear. No consolidations or effusions are seen. Procedure Note Richard Cooper MD - 12/03/2024 [place] [id number] 2 VIEWS OF THE CHEST Clinical history: Shortness of breath Comparison: 02/10/2025 2 views of the chest demonstrate the cardiac silhouette to be normal insize. The pulmonary vessels appear normal. The Lungs are clear. Noconsolidations or effusions are seen. IMPRESSION: Stable chest, no acute findings. Ordered By: ELISSA WHALEY Interpreted By: Richard Cooper MD, 12/03/2024 10:32 AM Elissa hWaley DO GENERAL IMAGING Final Resu lt from Last 3 Months Insurance [employer] Care Teams Program Support Specialist Relationship Specialty Start Date End Date Jaki Kim MD [address] [place] [id number] PCP - General FAMILY PRACTICE 09/30/24
--- OUTSIDE RECORDS SUMMARY | 2025-03-02 17:10 | XMS_ITS | Encounter Summary ---
Author Organization [facility] Address 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 [address] [place] [address] Mary Hudson MD [address] [place] [address] Hospital Follow Up Social History Tobacco Use Types Packs/Day Years Used Date Smoking Tobacco: Unknown Feeling Safe Answer Date Recorded Are you in a relationship wi th someone who hurts you emotionally and/or physically? 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 Patient has medicaid of [place], he is allowed one office visit with this insurance. Please explain this to patient!!!!! ERY MANAGER * Telephone Encounter - Mary Hudson MD - 08/27/2024 10:15 AM CST Sep 24 at 9:45 am ERY MANAGER * Telephone Encounter - Inna Fulton - 08/25/2024 10:13 AM CST Sep 21 at 9:30 is already scheduled. Would you like to schedule a different time? ERY MANAGER * Telephone Encounter - Mary Hudson MD - 08/21/2024 12:54 PM CST HFU on sep 21 at 9:30 am, he is still in hosp currently ERY MANAGER documented in this encounter Plan of Treatment Not on file documented as of this encounter Visit Diagnoses Not on filedocumented in this encounter Care Teams [employer] Laborer Relationship Specialty Start Date End Date Taz Sorto MD [address] [place] [address] PCP - General Internal Medicine 08/18/24 documented as of this encounter
== END 2025-03-02 16:22 | disposition home or self-care (01) ==
PROVIDERS: Emergency Provider Emergency Medicine; PCP Student in an Organized Health Care Education/Training Program
DX: S46.911A Strain of unspecified muscle, fascia and tendon at shoulder and upper arm level, right arm, initial encounter (principal); M19.011 Primary osteoarthritis, right shoulder; X58.XXXA Exposure to other specified factors, initial encounter
CPT/HCPCS: 73030; 99283; A4565